=== PATIENT | female | born 1950 | race Caucasian/White ===

== ENCOUNTER 2016-09-18 21:24 | Emergency (ER) | payer MEDICARE, MEDICAID ==
[2016-09-18] MEDS ORDERED: NS 0.9% 1000 ML* 1,000 ML IV ONE (22:34)
[2016-09-18 22:40] LABS: Hematocrit 38 % (35-47); Hemoglobin 12.5 g/dl (12.0-16.0); Mean Corpuscular HGB Conc 33 g/dl (31-36); Mean Corpuscular Hemoglobin 30 pg (27-31); Mean Corpuscular Volume 89 fL (80-97); Mean Platelet Volume 11 um3 (7.4-10.4); Red Blood Count 4.24 10^6/ul (4.0-5.4); Red Cell Distribution Width 14 % (10.5-15); White Blood Count 5.8 10^3/ul (3.5-10.8)
[2016-09-18 22:57] LABS: Albumin 3.9 g/dL (3.2-5.2); BUN/Creatinine Ratio 17.6 (8-20); Calcium 9.1 mg/dL (8.6-10.3); EGFR African American 112.4 (>60); EGFR Non-African American 87.4 (>60); Globulin 3.3 g/dL (2-4); Magnesium 1.7 mg/dL (1.9-2.7); Potassium 3.6 mmol/L (3.5-5.0); Total Bilirubin 0.4 mg/dL (0.2-1.0); Total Protein 7.2 g/dL (6.4-8.9)
[2016-09-18] MEDS ORDERED: Iodixanol* (CONTRAST) 320 MG/ML 100 ML SDV IV ONE (23:02)
[2016-09-18 23:10] LABS: Urine Bacteria Absent (Absent); Urine Bilirubin Negative (Negative); Urine Glucose 2+(150 mg/dL) (Negative); Urine Nitrite Negative (Negative)
[2016-09-18 23:15] LABS: TSH (Thyroid Stimulating Horm) 4.23 mcIU/mL (0.34-5.60)
--- NOTE | 2016-09-19 02:09 | ED ---
Chan Devlin Benjamin, scribed for Leslie Gomes MD on 09/18/16 at 2350 . Dizziness - HPI Summary HPI Summary: 70yo female c/o lightheadedness and dizziness, which the pt describes it as spacing out and having drunk-like feelings. Pt has hx of DM and gets vertigo regularly. Pt also had hx of traumatic left sided head injury last year and reports has been getting dizzy spells ever since. Pt says backward head movement triggers her dizziness. Pt had MRI and CT scan done last January that both came back negative. Todays episode occurred around 8-8:30pm and lasted about 30-45 minutes. Pt also reports some neck pain. Pt also has a little lump in her umbilical area of her abdomen. - History Of Current Complaint Chief Complaint: EDDizziness Stated Complaint: DIZZIENESS Time Seen by Provider: 09/18/16 21:52 Hx Obtained From: Patient Onset/Duration: Resolved Timing: Intermittent Episode Lasting - 30-45 minutes Severity Initially: Mild Severity Currently: None Character: Lightheaded, Dizzy Aggravating Factor(s): Position Change - backward head movement Alleviating Factor(s): Rest - Allergies/Home Medications Allergies/Adverse Reactions: Allergies Allergy/AdvReac Type Severity Reaction Status Date / Time Atenolol Allergy Unknown Verified 01/27/16 14:39 Reaction Details Hydrochlorothiazide Allergy Unknown Verified 01/27/16 14:39 [From Avalide] Reaction Details Irbesartan [From Avalide] Allergy Unknown Verified 01/27/16 14:39 Reaction Details Lisinopril Allergy Unknown Verified 01/27/16 14:39 Reaction Details Penicillins Allergy Unknown Verified 01/27/16 14:39 Reaction Details Ibuprofen AdvReac Mild GI Upset Verified 01/27/16 14:39 PMH/Surg Hx/FS Hx/Imm Hx Endocrine/Hematology History: Reports: Hx Anticoagulant Therapy - PRADAXA, Hx Diabetes Denies: Hx Thyroid Disease Cardiovascular History: Reports: Hx Atrial Fibrillation, Hx Hypercholesterolemia , Hx Hypertension Denies: Hx Pacemaker/ICD Respiratory History: Denies: Hx Asthma, Hx Chronic Obstructive Pulmonary Disease (COPD) GI History: Reports: Hx Gall Bladder Disease - removed Denies: Other GI Disorders History: Denies: Hx Renal Disease, Other Problems/Disorders Musculoskeletal History: Reports: Hx Arthritis - osteo and rheumatoid, Hx Orthopedic Injury - R fibula fx/repair with screws and plate Sensory History: Reports: Hx Contacts or Glasses Opthamlomology History: Reports: Hx Contacts or Glasses Neurological History: Denies: Hx Dementia, Hx Seizures Psychiatric History: Denies: Hx Substance Abuse - Cancer History Hx Chemotherapy: No Hx Radiation Therapy: No - Surgical History Surgery Procedure, Year, and Place: TUBAL Hx Anesthesia Reactions: No - Immunization History Date of Tetanus Vaccine: up to date Date of Influenza Vaccine: 2014 Infectious Disease History: No Infectious Disease History: Denies: Hx Hepatitis, Hx Human Immunodeficiency Virus (HIV), Traveled Outside the US in Last 30 Days - Family History Known Family History: Positive: Cardiac Disease - Social History Occupation: Disabled Lives: Alone Alcohol Use: None Substance Use Type: Reports: None Smoking Status (MU): Never Smoked Tobacco Review of Systems Constitutional: Negative Eyes: Negative ENT: Negative Cardiovascular: Negative Negative: Chest Pain Respiratory: Negative Negative: Shortness Of Breath Positive: Other - lump in abdomen. Negative: Abdominal Pain, Vomiting Genitourinary: Negative Musculoskeletal: Negative Skin: Negative Neurological: Other - dizziness, lightheadedness Psychological: Normal All Other Systems Reviewed And Are Negative: Yes Physical Exam Triage Information Reviewed: Yes Vital Signs On Initial Exam: Initial Vitals Pulse Pulse Ox 79 97 09/18/16 21:48 09/18/16 21:48 Vital Signs Reviewed: Yes Appearance: Positive: Well-Appearing, No Pain Distress, Obese Skin: Positive: Warm, Skin Color Reflects Adequate Perfusion, Dry Head/Face: Positive: Normal Head/Face Inspection Eyes: Positive: EOMI, DESIREE ENT: Positive: Hearing grossly normal, Pharynx normal, TMs normal Neck: Positive: Supple, Nontender Respiratory/Lung Sounds: Positive: Clear to Auscultation, Breath Sounds Present. Negative: Rales, Rhonchi Cardiovascular: Positive: RRR. Negative: Murmur Abdomen Description: Positive: Nontender, Soft. Negative: Distended, Guarding Bowel Sounds: Positive: Present Musculoskeletal: Positive: Strength/ROM Intact Neurological: Positive: Sensory/Motor Intact, Alert, Oriented to Person Place, Time, CN Intact II-III Psychiatric: Positive: Affect/Mood Appropriate - Georgie Coma Scale Coma Scale Total: 15 Diagnostics - Vital Signs Vital Signs Temp Pulse Resp BP Pulse Ox 09/18/16 22:59 77 20 97 09/18/16 22:55 158/78 09/18/16 22:47 23 09/18/16 22:30 19 158/77 09/18/16 22:15 98 F 83 16 145/93 98 09/18/16 22:14 98 F 74 16 145/93 97 09/18/16 22:00 79 18 145/93 97 09/18/16 21:51 79 160/83 96 09/18/16 21:48 79 97 - Laboratory Lab Results: Lab Results 09/18/16 09/18/16 09/18/16 Range/Units 22:34 22:34 22:34 WBC 5.8 (3.5-10.8) 10^3/ul RBC 4.24 (4.0-5.4) 10^6/ul Hgb 12.5 (12.0-16.0) g/dl Hct 38 (35-47) % MCV 89 (80-97) fL MCH 30 (27-31) pg MCHC 33 (31-36) g/dl RDW 14 (10.5-15) % Plt Count 157 (150-450) 10^3/ul MPV 11 H (7.4-10.4) um3 Neut % (Auto) 46.0 (38-83) % Lymph % (Auto) 42.6 (25-47) % [place] % (Auto) 7.5 (1-9) % Eos % (Auto) 2.9 (0-6) % Baso % (Auto) 1.0 (0-2) % Absolute Neuts (auto) 2.6 (1.5-7.7) 10^3/ul Absolute Lymphs (auto) 2.5 (1.0-4.8) 10^3/ul Absolute Monos (auto) 0.4 (0-0.8) 10^3/ul Absolute Eos (auto) 0.2 (0-0.6) 10^3/ul Absolute Basos (auto) 0.1 (0-0.2) 10^3/ul Absolute Nucleated RBC 0 10^3/ul Nucleated RBC % 0.1 Sodium 135 (133-145) mmol/L Potassium 3.6 (3.5-5.0) mmol/L Chloride 103 (101-111) mmol/L Carbon Dioxide 27 (22-32) mmol/L Anion Gap 5 (2-11) mmol/L BUN 12 (6-24) mg/dL Creatinine 0.68 (0.51-0.95) mg/dL Est GFR ( Amer) 112.4 (>60) Est GFR (Non-Af Amer) 87.4 (>60) BUN/Creatinine Ratio 17.6 (8-20) Glucose 237 H (70-100) mg/dL Lactic Acid 1.4 (0.5-2.0) mmol/L Calcium 9.1 (8.6-10.3) mg/dL Magnesium 1.7 L (1.9-2.7) mg/dL Total Bilirubin 0.40 (0.2-1.0) mg/dL AST 11 L (13-39) U/L ALT 11 (7-52) U/L Alkaline Phosphatase 62 (34-104) U/L Troponin I 0.00 (<0.04) ng/mL Total Protein 7.2 (6.4-8.9) g/dL Albumin 3.9 (3.2-5.2) g/dL Globulin 3.3 (2-4) g/dL Albumin/Globulin Ratio 1.2 (1-3) TSH Pending Result Diagrams: 09/18/16 22:34 09/18/16 22:34 Lab Statement: Any lab studies that have been ordered have been reviewed, and results considered in the medical decision making process. - CT CTA head CT Interpretation: No Acute Changes - Anterior and posterior arterial circulations are patent. No stenosis occlusion dissection or aneurysm. Minimal plaque along the ramos of the carotid siphons. CT Interpretation Completed By: Radiologist CTA Neck CT Interpretation: No Acute Changes - Minimal calcified plaque along the bifurcations. CT Interpretation Completed By: Radiologist CT Brain WO CT Interpretation: No Acute Changes CT Interpretation Completed By: Radiologist - EKG 0112. Cardiac Rate: NL - 74bpm EKG Rhythm: Atrial Fibrillation ST Segment: Non-Specific - non-specific t waves Ectopy: None EKG Comparison: No Significant Change - compared to Jan 2016. - Additional Comments Diagnostic Additional Comments: Anterior and posterior arterial circulations are patent. No stenosis occlusion dissection or aneurysm. Minimal plaque along the ramos of the carotid siphons. National Institutes Of Health - NIH Scale Level of Consciousness: Alert/Keenly Responsive Ask Patient the Month and His/Her Age: Both Correct Ask Pt to Open/Close Eyes and Floatlight Powder Mixer/Release Non-Paretic Hand: Both Correctly Best Gaze (Only Horizontal Eye Movement): Normal Visual Field Testing: No Visual Loss Facial Paresis-Pt to Smile & Close Eyes or Grimace Symmetry: Normal/Symmetrical Motor Function - Right Arm: No Drift-Holds 10 Seconds Motor Function - Left Arm: No Drift-Holds 10 Seconds Motor Function - Right Leg: No Drift-Holds 10 Seconds Motor Function - Left Leg: No Drift-Holds 10 Seconds Limb Ataxia-Must be out of Proportion to Weakness Present: Absent Sensory (Use Pinprick to Test Arms/Legs/Trunk/Face): Normal Best Language (Describe Picture, Name Items): No Aphasia Dysarthria (Read Several Words): Normal Extinction and Inattention: No Abnormality Total Score: 0 Dizzy Course/Dx - Course Course Of Treatment: pt who describes long standing light headedness vs. vertigo with symptoms tonight and some neck pain ct brain, cta head and neck neg labs normal - just needs close follow up - Diagnoses Provider Diagnoses: Dizziness Discharge - Discharge Plan Condition: Stable Disposition: HOME Patient Education Materials: Dizziness (ED) Referrals: Derrick Meza MD [Primary Care Provider] - The documentation as recorded by the Chan rojas Benjamin accurately reflects the service I personally performed and the decisions made by me, Leslie Gomes MD.
[2016-09-19 02:16] VITALS: BP 159/74
--- NOTE | 2016-09-19 07:41 | RAD ---
INDICATION: Vertigo. COMPARISON: Comparison is made with a prior CT of the brain from January 27, 2016. TECHNIQUE: Contiguous axial sections of the brain were obtained from the skull base to the vertex without contrast. FINDINGS: The ventricles, cisterns and sulci are within normal limits. No significant focal abnormality or mass effect is seen. There is a Virchow-Zak space present in the inferior posterior left frontal lobe which is unchanged from the prior study. There is no evidence for hemorrhage. The visualized portion of the paranasal sinuses appear clear. IMPRESSION: NO EVIDENCE FOR GROSS ACUTE INFARCT, MASS EFFECT OR HEMORRHAGE.
--- NOTE | 2016-09-19 07:53 | RAD ---
INDICATION: Vertigo. COMPARISON: Comparison is made with a prior CT of the brain of the same date and a prior carotid duplex ultrasound from March 14, 2016. TECHNIQUE: A CT angiogram of the head and neck was performed following intravenous injection of 80 ml of Visipaque 320 nonionic contrast. Contiguous axial sections were obtained from the thoracic inlet through the skull vertex. Images were reconstructed in the coronal and sagittal planes and in a 3-D volume rendered format. The distal cervical internal carotid artery diameter is used as the denominator for stenosis measurement. FINDINGS: RIGHT CAROTID: The common and internal carotid arteries appear patent without evidence for hemodynamically significant stenosis. There is minimal calcific plaque at the carotid bifurcation. LEFT CAROTID: The common and internal carotid arteries appear patent without evidence for hemodynamically significant stenosis. There is mild calcific plaque at the carotid bifurcation. VERTEBRALS: The vertebral arteries appear patent. CTA BRAIN: The internal carotid, anterior and middle cerebral arteries appear patent without evidence for high-grade stenosis or occlusion. There is mild calcific plaque present within the cavernous portion of the internal carotid arteries. The vertebral, basilar and posterior cerebral arteries appear patent without evidence for high-grade stenosis or occlusion. The right posterior cerebral artery arises from the posterior communicating artery consistent with normal variation. No gross focal perfusion abnormalities are seen. No aneurysm or vascular malformation is seen. NECK: No significant enlarged lymph nodes are seen within the neck. The thyroid, parotid and submandibular glands appear to be within normal limits. The lung apices appear clear. The sinuses are clear. IMPRESSION: 1. NO EVIDENCE FOR CAROTID STENOSIS. 2. NO EVIDENCE FOR INTRACRANIAL ANEURYSM OR VASCULAR MALFORMATION. CPT II Codes: 3100F
== END 2016-09-19 02:15 | disposition home or self-care (01) ==
LOC: ED 21:24
DX: R42 Dizziness and giddiness (principal); E11.9 Type 2 diabetes mellitus without complications; I48.91 Unspecified atrial fibrillation; Z79.01 Long term (current) use of anticoagulants; E78.00 Pure hypercholesterolemia, unspecified; I10 Essential (primary) hypertension; E66.9 Obesity, unspecified; Z90.49 Acquired absence of other specified parts of digestive tract
CPT/HCPCS: 36415; 70450; 70496; 70498; 80053; 81003; 81015; 83605; 83735; 84443; 84484; 85025; 87086; 93005; 96360; 99283; Q9967

== ENCOUNTER 2018-01-30 16:29 | Observation (INO) | payer MEDICARE, MEDICAID ==
--- NOTE | 2018-01-30 17:27 | ED ---
HPI Chest Pain - HPI Summary HPI Summary: Pt is a 67 y/o female brought in by EMS who presents to the ED c/o chest pressure. She states a few weeks ago she suddenly couldnt move her left side, but was able to after a few minutes. This has happened several times since then. 3 days ago, she began to have chest pressure, intermittent lower back pain , and pain underneath her left breast rated 3/10 in severity. Pt denies any SOB. Her BP medications were recently increased, and she believes her sx might be due to this. Pt has AFib, HLD, HTN, and DM. She denies having a pacemaker. FHx cardiac disease. Pt is on Eloquis. She has not had any recent stress test. Pt denies any smoking or alcohol use. BP while in room 158/101. - History of Current Complaint Chief Complaint: EDChestPainROMI Time Seen by Provider: 01/30/18 17:17 Hx Obtained From: Patient Onset/Duration: Started Weeks Ago - Several, Still Present Timing: Intermittent Current Severity: Moderate Pain Intensity: 3 Pain Scale Used: 0-10 Numeric Chest Pain Location: Left Lateral Character: Pressure/Squeezing Aggravating Factor(s): Nothing Alleviating Factor(s): Nothing Associated Signs and Symptoms: Positive: Chest Pain. Negative: Shortness of Breath - Additional Pertinent History Primary Care Physician: [id number] - Allergy/Home Medications Allergies/Adverse Reactions: Allergies Allergy/AdvReac Type Severity Reaction Status Date / Time MS Atenolol [Atenolol] Allergy Unknown Verified 10/11/16 11:05 Reaction Details MS Hydrochlorothiazide Allergy Unknown Verified 10/11/16 11:05 [From Avalide] Reaction Details MS Irbesartan [From Avalide] Allergy Unknown Verified 10/11/16 11:05 Reaction Details MS Lisinopril [Lisinopril] Allergy Unknown Verified 10/11/16 11:05 Reaction Details MS Penicillins [Penicillins] Allergy Unknown Verified 10/11/16 11:05 Reaction Details MS Ibuprofen [Ibuprofen] AdvReac Mild GI Upset Verified 10/11/16 11:05 PMH/Surg Hx/FS Hx/Imm Hx Endocrine/Hematology History: Reports: Hx Anticoagulant Therapy - PRADAXA, Hx Diabetes - TYPE 2 Denies: Hx Thyroid Disease Cardiovascular History: Reports: Hx Atrial Fibrillation, Hx Hypercholesterolemia , Hx Hypertension - ON MEDS Denies: Hx Pacemaker/ICD Respiratory History: Denies: Hx Asthma, Hx Chronic Obstructive Pulmonary Disease (COPD) GI History: Reports: Hx Gall Bladder Disease - removed Denies: Other GI Disorders History: Denies: Hx Renal Disease, Other Problems/Disorders Musculoskeletal History: Reports: Hx Arthritis - osteo and rheumatoid, Hx Orthopedic Injury - R fibula fx/repair with screws and plate Sensory History: Reports: Hx Contacts or Glasses Denies: Hx Hearing Aid Opthamlomology History: Reports: Hx Contacts or Glasses Neurological History: Denies: Hx Dementia, Hx Seizures Psychiatric History: Reports: Hx Panic Disorder Denies: Hx Substance Abuse - Cancer History Hx Chemotherapy: No Hx Radiation Therapy: No - Surgical History Surgery Procedure, Year, and Place: TUBAL LIGATION;. LEFT FOREARM;. HERNIA REPAIR;. RIGHT ANKLE;. GALLBLADDER REMOVED;. LEFT EAR FOR REATTACHMENT AFTER INJURY; Hx Anesthesia Reactions: No - Immunization History Date of Tetanus Vaccine: up to date Date of Influenza Vaccine: 2014 Infectious Disease History: No Infectious Disease History: Denies: Hx Hepatitis, Hx Human Immunodeficiency Virus (HIV), Traveled Outside the [place] in Last 30 Days - Family History Known Family History: Positive: Cardiac Disease - Social History Alcohol Use: None Hx Substance Use: No Substance Use Type: Reports: None Hx Tobacco Use: No Smoking Status (MU): Never Smoked Tobacco Review of Systems Positive: Chest Pain, Other - Chest pressure Negative: Shortness Of Breath Positive: Myalgia - low back, left chest Positive: Weakness - left-sided, intermittent All Other Systems Reviewed And Are Negative: Yes Physical Exam - Summary Physical Exam Summary: Appearance: Well appearing, no pain distress Skin: warm, dry, reflects adequate perfusion Head/face: normal Eyes: EOMI, DESIREE ENT: normal Neck: supple, non-tender Respiratory: CTA, breath sounds present Cardiovascular: RRR, pulses symmetrical Abdomen: non-tender, soft Musculoskeletal: normal, strength/ROM intact Neuro: normal, sensory motor intact, A&Ox3 Triage Information Reviewed: Yes Vital Signs On Initial Exam: Initial Vitals Temp Pulse Resp BP Pulse Ox 98.9 F 77 20 171/97 99 01/30/18 17:14 01/30/18 17:14 01/30/18 17:14 01/30/18 17:14 11/28/18 17:14 Vital Signs Reviewed: Yes Diagnostics - Vital Signs Vital Signs Temp Pulse Resp BP Pulse Ox 01/30/18 17:14 98.9 F 77 20 171/97 99 - Laboratory Result Diagrams: 01/30/18 18:20 01/30/18 18:20 Lab Statement: Any lab studies that have been ordered have been reviewed, and results considered in the medical decision making process. - Radiology CXR Radiology Interpretation Completed By: Radiologist Summary of Radiographic Findings: Cardiomegaly and mild pulmonary vascular congestion. ED physician reviewed radiology report. - EKG 17:40 Cardiac Rate: NL - 82 bpm EKG Rhythm: Sinus Rhythm ST Segment: Non-Specific Chest Pain Course/Dx - Course Course Of Treatment: Pt is a 67 y/o female brought in by EMS who presents to the ED c/o chest pressure. She states a few weeks ago she suddenly couldnt move her left side, but was able to after a few minutes. This has happened several times since then. 3 days ago, she began to have chest pressure, intermittent lower back pain, and pain underneath her left breast rated 3/10 in severity. Pt denies any SOB. Her BP medications were recently increased, and she believes her sx might be due to this. Pt has AFib, HLD, HTN, and DM. She denies having a pacemaker. FHx cardiac disease. Pt is on Eloquis. She has not had any recent stress test. Pt denies any smoking or alcohol use. BP while in room 158/101. A physical exam was normal. A CXR revealed Cardiomegaly and mild pulmonary vascular congestion. An EKG revealed non-specific ST changes. Final dx are chest pain and R/O CT. Pt will be admitted to Dr. Wallace. - Chest Pain Differential Diagnosis/HQI/PQRI: Acute CT, ACS, Angina - Diagnoses Provider Diagnoses: Chest pain, Ruled out for myocardial infarction - Provider Notifications Discussed Care Of Patient With: Ame Wallace Time Discussed With Above Provider: 19:10 Instructed by Provider To: Admit As Inpatient Discharge - Sign-Out/Discharge Documenting (check all that apply): Patient Departure - Admit - Discharge Plan Condition: Stable Disposition: ADMITTED TO [facility] Referrals: Derrick Meza MD [Primary Care Provider] - - Billing Disposition and Condition Condition: STABLE Disposition: Admitted to [facility] - Attestation Statements Document Initiated by Clarisseibsamantha: Yes Documenting Scribe: Maren Collins Provider For Whom Clarisseibsamantha is Documenting (Include Credential): Berto Dempsey MD Scribe Attestation: Maren Devlin, scribed for Berto Dempsey MD on 01/30/18 at 1922. Scribe Documentation Reviewed: Yes Provider Attestation: The documentation as recorded by the Maren rojas accurately reflects the service I personally performed and the decisions made by Berto portillo MD Status of Scribe Document: Viewed
[2018-01-30] MEDS ORDERED: Aspirin 81 mg CHEW TAB* 81 MG TAB.CHEW PO ONE (17:30)
[2018-01-30] MEDS ORDERED: Nitroglycerin 2% OINT* 1 GM PAK TOPICAL ONE (17:30)
[2018-01-30 18:35] LABS: ABS Basophils 0 10^3/ul (0-0.2); ABS Eosinophils 0.1 10^3/ul (0-0.6); ABS Lymphocytes 2.5 10^3/ul (1.0-4.8); ABS Monocytes 0.4 10^3/ul (0-0.8); ABS Neutrophils 3.6 10^3/ul (1.5-7.7); ABS Nucleated RBC 0 10^3/ul; Eosinophil % 1.9 %; Hematocrit 41 % (35-47); Hemoglobin 13.6 g/dl (12.0-16.0); Lymphocyte % 37.5 %; Mean Corpuscular HGB Conc 34 g/dl (31-36); Mean Corpuscular Hemoglobin 30 pg (27-31); Mean Corpuscular Volume 88 fL (80-97); Mean Platelet Volume 10.3 fL (7.4-10.4); Nucleated Red Blood Cells % 0; Platelet Count 165 10^3/ul (150-450); Red Blood Count 4.62 10^6/ul (4.00-5.40); Red Cell Distribution Width 14 % (10.5-15); White Blood Count 6.7 10^3/ul (3.5-10.8)
[2018-01-30 18:46] LABS: INR 1.04 (0.77-1.02)
[2018-01-30] MEDS ORDERED: Acetaminophen TAB* 325 MG PO PRN (19:51)
[2018-01-30] MEDS ORDERED: Al Hydrox/Mg Hydrox/Simet LIQ* 30 ML UDC PO PRN (19:51)
[2018-01-30] MEDS ORDERED: Ondansetron INJ* 2 MG/ML VIAL IV PRN (19:51)
[2018-01-30] MEDS ORDERED: Dextrose 50% Syringe 50 ML* 25 GM/50 ML SYRINGE IV PUSH PRN (19:58)
[2018-01-30] MEDS ORDERED: ALPRAZolam TAB* 0.25 MG PO PRN (20:01)
[2018-01-30 20:14] LABS: Urine Appearance Clear; Urine Blood Negative (Negative); Urine Color Straw; Urine Ketones Negative (Negative); Urine Protein Negative (Negative); Urine Red Blood Cell Absent (Absent); Urine Specific Gravity 1.005 (1.010-1.030); Urine Urobilinogen Negative (Negative); Urine White Blood Cell Absent (Absent)
[2018-01-30] MEDS: Magnesium Oxide TAB* 400 MG PO SCH (21:56)
[2018-01-30] MEDS: Apixaban* 2.5 MG TAB PO SCH (21:56)
[2018-01-30] MEDS ORDERED: Atorvastatin* 10 MG TAB PO SCH (22:00)
--- NOTE | 2018-01-31 01:58 | HP ---
CC: Derrick Meza MD * HISTORY AND PHYSICAL: DATE OF ADMISSION: 01/30/18 TIME OF EVALUATION: 1929. PRIMARY CARE PHYSICIAN: Derrick Meza MD CHIEF COMPLAINT: Chest pain. HISTORY OF PRESENT ILLNESS: This is a 67-year-old female with a past medical history of atrial fibrillation, on anticoagulation who presented to the emergency room after having 3 days of chest pain and pressure under her left breast that comes and goes. She states it got significant today when she was on the bus. She was not feeling well. She had the bus kiln puller and had them call 911 to come to the emergency room for further evaluation. She has had no associated shortness of breath, no nausea, no diaphoresis. She has increased burping with indigestion. She is undergoing a lot of stress. She states that she gets very aggravated with her ex- and this makes her chest pain worse. Nothing seems to improve it. She has never taken sublingual nitro that she has had at home. She does not recall her last stress test. She thinks this is related to anxiety and stress and panic attack. Denies any exertional activity. She was recently changed to 240 mg of diltiazem from 180 a month ago. She is set up to get a Holter monitor [address] Cheema. No fevers. No URI symptoms. She states she has chronic lower extremity swelling. Otherwise, review of systems is negative. In the emergency room, the patient had labs, imaging. She was given aspirin 324 mg and referred to the hospitalist service for further evaluation. PAST MEDICAL HISTORY: 1. Atrial fibrillation, on anticoagulation, followed by Dr. Cheema. 2. Nonobstructive coronary artery disease. 3. Diabetes. 4. GERD. MEDICATIONS: 1. Diltiazem ER 240 mg p.o. daily. 2. Glipizide 5 mg p.o. b.i.d. 3. Januvia 50 mg daily. 4. Losartan potassium 25 mg p.o. daily. 5. Nexium 40 mg daily. 6. Crestor 5 mg daily. 7. Aspirin 81 mg daily. 8. Eliquis 2.5 mg p.o. b.i.d. 9. Metformin 500 mg 2 tabs daily. ALLERGIES: ATENOLOL, HYDROCHLOROTHIAZIDE, IRBESARTAN, LISINOPRIL, PENICILLIN, IBUPROFEN. SOCIAL HISTORY: The patient lives alone. She is independent of her ADLs. No history of smoking, alcohol, or illicit drug use. Her healthcare proxy is her daughter, Cassie. Code status, full code. FAMILY HISTORY: Father from complications of prostate cancer when he was 55. Mother from old age at age 90. No history of other coronary artery disease. REVIEW OF SYSTEMS: A 14-point review of systems is as mentioned in the HPI, otherwise negative. PHYSICAL EXAMINATION GENERAL: In no acute distress, resting comfortably. VITALS: Temp 98.9, pulse rate 79, respiratory rate 17, oxygen saturation 96% on room air, blood pressure 147/95. HEENT: Head: Normocephalic. Pupils are equal and reactive, anicteric. Oropharynx: Mucous membranes are moist. NECK: Supple. No lymphadenopathy. RESPIRATORY: Clear to auscultation. No wheezing, rhonchi, or rales. CARDIAC: Irregularly irregular rate and rhythm. Soft systolic murmur, most pronounced at left sternal base. ABDOMEN: Soft, nontender, nondistended. EXTREMITIES: No clubbing, cyanosis, or edema. +2 DPs. NEUROLOGICAL: Alert and oriented x3. No gross focal neurologic deficits. LABORATORY DATA: White count 6.7, hemoglobin 13.6, hematocrit 41, platelets 165. INR is 1.04. Sodium 141, potassium 3.9, chloride 107, bicarb 27, BUN 10, creatinine 0.8, glucose 134. Mag is 1.8. Troponin is 0. BNP 89. RADIOGRAPHIC DATA: EKG shows atrial fibrillation with QTc of 570, no significant ST changes. Chest x-ray, cardiomegaly and mild pulmonary vascular congestion. ASSESSMENT: This is a 67-year-old female with past medical history of atrial fibrillation, on anticoagulation who presented to the emergency room with chest pain. 1. Chest pain. The patient's initial workup is unremarkable. This is atypical chest pain. I suspect this is likely related to anxiety and a panic attack and less likely acute coronary syndrome, but with her risk factors, not unreasonable to admit for overnight observation to rule out for acute coronary syndrome. Plan: We will admit her to telemetry. Continue to monitor her troponin. Check her lipid panel in the morning. We will add on hemoglobin A1c. We will order a nuclear stress test in the morning. We will continue her on her aspirin. We will switch her to atorvastatin. We will do a trial of Xanax as needed if she has any panic attacks here. 2. Atrial fibrillation, on anticoagulation. The patient is rate controlled. We will continue her Eliquis. Also continue her diltiazem. 3. Hypertension. Continue her losartan. 4. Hyperlipidemia. Continue her atorvastatin. 5. Gastroesophageal reflux disease. Continue omeprazole in place of Nexium. 6. FEN. Diabetic diet. N.p.o. after midnight. 7. DVT prophylaxis. The patient scores moderate risk. She is on Eliquis. 8. Code status. Full code. PATIENT TIME: Greater than 45 minutes was spent doing the history and physical , more than half the time was direct patient contact. [id number]/[facility] #: [id number] CHERYL
[2018-01-31] MEDS ORDERED: Insulin LISPRO* 1 UNITS UNIT SUBCUT SCH (07:30)
[2018-01-31] MEDS ORDERED: Omeprazole CAP* 20 MG PO SCH (07:30)
[2018-01-31] MEDS ORDERED: Diltiazem CD CAP* 240 MG PO SCH (09:00)
[2018-01-31] MEDS ORDERED: Aspirin 81 mg CHEW TAB* 81 MG TAB.CHEW PO SCH (09:00)
[2018-01-31] MEDS ORDERED: Losartan TAB* 25 MG PO SCH (09:00)
[2018-01-31] MEDS ORDERED: Regadenoson* 0.4 MG/5 ML SYRINGE ONE (09:37)
[2018-01-31 09:48] VITALS: BP 147/90
[2018-01-31] MEDS: Apixaban* 2.5 MG TAB PO SCH (10:42)
[2018-01-31] MEDS: Magnesium Oxide TAB* 400 MG PO SCH (10:43)
--- NOTE | 2018-02-02 10:21 | DS ---
CC: Derrick Meza MD * DISCHARGE SUMMARY: DATE OF ADMISSION: 01/30/18 DATE OF DISCHARGE: 01/31/18 PRIMARY CARE PROVIDER: Derrick Meza MD MY ATTENDING WHILE IN THE HOSPITAL: Dr. Nona Montana.* (DICTATED BY DANAY MENCHACA) PRIMARY DISCHARGE DIAGNOSIS: Chest pain. SECONDARY DISCHARGE DIAGNOSIS: 1. Atrial fibrillation. 2. Obstructive coronary artery disease. 3. Diabetes. 4. Gastroesophageal reflux disease. STUDIES DONE WHILE IN THE HOSPITAL: Chest x-ray from 01/30/18 read as cardiomegaly and mild pulmonary vascular congestion. Electrocardiogram from 01/30/18 shows atrial fibrillation, rate 82, QTC of 570, likely fleeting 2 U waves or atrial fibrillation beats, normal axis, T-wave flattening in V4, V3 through V6 as well as II and III compared to previous examination. T-wave flattening is new. Atrial fibrillation is not new or significant changes. Repeat EKG from 01/31/18 shows persistent T-wave flattening in lateral leads, resolution in II and III. No significant changes. Nuclear medicine scan from 01/31/18 read as decreased ejection fraction, no definite fixed or perfusion defect. EF read as 48%. Cardiac stress test showed poor exercise tolerance and possible hypertensive response to exercise with nausea. Baseline EKG abnormalities preclude assessment for ischemia. MEDICATIONS AT DISCHARGE: 1. Metformin 500 mg p.o. daily. 2. Aspirin 81 mg p.o. daily. 3. Diltiazem 240 mg p.o. daily. 4. Nitroglycerin 0.5 mg sublingual as needed for chest pain. 5. Losartan 25 mg p.o. daily. 6. Glipizide 5 mg p.o. daily. 7. Januvia 50 mg p.o. daily. 8. Eliquis 2.5 mg p.o. b.i.d. 9. Rosuvastatin 5 mg p.o. at bedtime. 10. Nexium 40 mg p.o. daily. 11. Magnesium oxide 100 mg p.o. daily. HOSPITAL COURSE: This is a brief summary of patient's presentation. For more details, please see history and physical from Dr. Ame Wallace on 01/30/18. In brief, the patient is a 67-year-old female with past medical history significant for the above who presented to the emergency department with 3 days of chest pain under her left breast that was intermittent. She endorsed gastrointestinal symptoms including burping and indigestion and stated that her pain mainly was accompanied by stress. The patient never took nitroglycerin. The patient recently changed to 240 mg of diltiazem and to follow up with Dr. Cheema for her atrial fibrillation. The patient in the emergency department had an EKG as above. She was admitted to the hospital and it was believed she had her atypical chest pain with a low risk for acute coronary syndrome. The patient did not have any more chest pain while in the hospital. The patient had a repeat electrocardiogram the day after admission, which was read as above. The patient initially had a prolonged QT interval and low magnesium. The patient was started on oral magnesium supplementation and her QT interval improved. The patient's lipid profile showed an LDL of 55 and HDL of 45. The patient's blood glucose control while in the hospital was good, but her hemoglobin A1c was 8.4%. The patient underwent a stress test which was read as above. Due to patient's atrial fibrillation, the patient's decreased EF in the setting of no ischemia is likely artifactual. The patient was very insistent upon her discharge in the morning on 02/01/18 and threatened to leave against medical advice if she was not discharged. It was discussed with the patient that she required a routine followup with her outpatient gusset ripper results of her stress test and to possibly have an echocardiogram to assess for decreased ejection fraction. The patient is understanding. It was also discussed that the patient should try to decrease her stress level and she stated understanding of this although she did not think this would be feasible. The patient was stable enough for discharge on 02/01/18. PHYSICAL EXAMINATION AT TIME OF DISCHARGE: General: The patient is an 67-year- old obese female who appears stated age, sitting comfortably in bed, in no acute distress. HEENT: Head: Normocephalic, atraumatic. Sclerae anicteric. No conjunctival injection. Nasal mucosa moist. Oral mucosa moist. No pharyngeal erythema, discharge, or exudates. Vital signs at the time of discharge: Temperature 97.9, pulse rate 58, respiratory rate 16, oxygen saturation 98% on room air, blood pressure 147/90. Neck: Supple, nontender. No lymphadenopathy. No carotid bruit auscultated. No JVD Cardiac: Regular rate and rhythm. No clicks, murmurs, gallops, rubs. Pulses 2+ bilaterally in dorsalis pedis, posterior tibialis, and radial areas. No bilateral lower extremity edema noted. Respiratory: Clear to auscultation bilaterally. No wheezes, rales, or rhonchi. Good air exchange bilaterally. Abdomen: Soft, nontender, nondistended. Bowels sounds present, normoactive in all 4 quadrants. No hepatosplenomegaly, no abdominal bruits auscultated. No hepatojugular reflux. Genitourinary: No suprapubic tenderness or CVA tenderness. Skin: Clean, dry and intact. No rash. Neuro: Cranial nerves II through XII intact. No focal deficits. Alert and oriented x3. Psychiatric: Pleasant and cooperative. DISCHARGE PLAN: The patient will be discharged to home. The patient should follow up with her outpatient gusset ripper Dr. Cheema to discuss the results of her stress test and possibly have a followup echocardiogram. As above, the patient's decreased EF is likely artifactual. However, the patient's stress test was abnormal. The patient's decreased exercise tolerance is likely due to her obesity and it was discussed with the patient she should lose weight for her health and she stated understanding. The patient feels that she is not tolerating 240 mg of diltiazem daily and she was instructed to discuss decreasing her dose with her outpatient gusset ripper Dr. Cheema. The patient has an excellent lipid profile, will continue on rosuvastatin. The patient will be continued on aspirin daily as well as her outpatient antihypertensive medications. The patient should discuss with her primary care provider escalating therapy for her diabetes as she is not at goal in her A1c. The patient should have heart healthy, consistent carbohydrate diet and engage in activities as tolerated to help with her weight loss. TIME SPENT: Approximately 60 minutes was spent on the discharge, 30 of which was spent [id number] with the patient and obtaining history and physical and discussing treatment plan. DANAY MENCHACA [id number]/[facility] #: [id number] CHERYL
== END 2018-01-31 13:39 | disposition home or self-care (01) ==
LOC: ED 16:29 → MEDTELE 19:51
PROVIDERS: ADMIT Pediatrics; ATTEND Pediatrics
DX: R07.9 Chest pain, unspecified (principal); I48.91 Unspecified atrial fibrillation; J44.9 Chronic obstructive pulmonary disease, unspecified; E11.9 Type 2 diabetes mellitus without complications; K21.9 Gastro-esophageal reflux disease without esophagitis; Z88.0 Allergy status to penicillin; Z79.01 Long term (current) use of anticoagulants; I10 Essential (primary) hypertension; M54.5 Low back pain; Z79.82 Long term (current) use of aspirin
CPT/HCPCS: 36415; 71045; 78452; 80053; 80061; 81003; 81015; 83036; 83605; 83735; 83880; 84484; 85025; 85610; 85730; 87086; 93005; 93017; 96374; 96375; 99284; A9270-GY; A9502; G0378; J2785

== ENCOUNTER 2018-03-11 15:44 | Observation (INO) | payer MEDICARE, MEDICAID ==
--- NOTE | 2018-03-11 16:05 | ED ---
Neurological HPI - HPI Summary HPI Summary: A 67 y/o female who was referred from her PCP presents to [facility] with a chief complaint of a possible TIA. She c/o left sided hip pain, back pain, left arm pain, left leg pain and weakness stating that she needs to pull herself up the steps. She has been having these symptoms since 03/08/18. She rates her pain as 3/10. Elevating her foot alleviates her pain. Pulling her leg up aggravates her pain. She called her PCP who instructed her to come to the ED for a Brain CT. She has a Hx of DM and states that she has had a loose bladder. She denies using a walker or having prior issues with her left leg. She also reports that her feet have been cold and numb. She denies Fever, Chills, Erythema (eyes), Sore throat, Chest pain, Shortness of Breath, Cough, Abdominal pain, Vomiting, Nausea, Dysuria, Hematuria, Edema, Rash and Dizziness. She claims that she was on Magnesia 400mg 2 weeks [employer] and claims that it gave her nausea, but has stopped and her nausea has since resolved. - History of Current Complaint Chief Complaint: EDNeurologicalDeficit Stated Complaint: POSSIBLE TIA Time Seen by Provider: 03/11/18 15:56 Hx Obtained From: Patient Onset/Duration: Sudden Onset, Started days ago, Still Present Timing: Constant Onset Severity: Mild Current Severity: Mild Pain Intensity: 3 Pain Scale Used: 0-10 Numeric Character: Weak, Numbness/Tingling, Other: - Cold feet Aggravating: Exertion Alleviating: Other - Elevating feet Associated Signs and Symptoms: Positive: Numbness. Negative: Dizziness, Nausea/ Vomiting, Chest Pain - Additional Pertinent History Primary Care Physician: [id number] - Allergy/Home Medications Allergies/Adverse Reactions: Allergies Allergy/AdvReac Type Severity Reaction Status Date / Time latex Allergy Unknown Verified 03/11/18 15:51 Reaction Details lisinopril Allergy Unknown Verified 03/11/18 15:51 Reaction Details Penicillins Allergy Unknown Verified 03/11/18 15:51 Reaction Details warfarin Allergy Unknown Verified 03/11/18 15:51 Reaction Details atenolol AdvReac Unknown Verified 03/11/18 15:51 Reaction Details ciprofloxacin AdvReac Unknown Verified 03/11/18 15:51 Reaction Details hydrochlorothiazide AdvReac Unknown Verified 03/11/18 15:51 Reaction Details ibuprofen AdvReac GI Upset Verified 03/11/18 15:51 irbesartan AdvReac Unknown Verified 03/11/18 15:51 Reaction Details clorox Allergy Unknown Uncoded 03/11/18 15:51 Reaction Details strawerry Allergy Unknown Uncoded 03/11/18 15:51 Reaction Details Home Medications: Home Medications Aspirin EC TAB* [Ecotrin EC Low Dose 81 MG*] 81 mg PO DAILY 03/11/18 [History Confirmed 03/11/18] Fluticasone NASAL SPRAY 50MCG* [Flonase NASAL SPRAY 50MCG*] 2 spray BOTH NARES DAILY 03/11/18 [History Confirmed 03/11/18] Losartan TAB* [Cozaar TAB*] 25 mg PO DAILY 03/11/18 [History Confirmed 03/11/18] Magnesium Oxide TAB* [MagOx 400 TAB*] 800 mg PO DAILY 03/11/18 [History Confirmed 03/11/18] Nitroglycerin TAB 0.4 MG* 0.4 mg SL Q5M PRN 03/11/18 [History Confirmed 03/11/18 ] Rosuvastatin (NF) [Crestor (NF)] 5 mg PO DAILY 03/11/18 [History Confirmed 03/11] Sitagliptin (NF) [Januvia (NF)] 50 mg PO DAILY 03/11/18 [History Confirmed 03/11] dilTIAZem HCl [Diltiazem 24Hr ER] 240 mg PO DAILY 03/11/18 [History Confirmed ] glipiZIDE [Glipizide ER] 10 mg PO DAILY 03/11/18 [History Confirmed 03/11/18] metFORMIN* [Glucophage 500 MG TAB *] 500 mg PO BID 03/11/18 [History Confirmed 03/11/18] PMH/Surg Hx/FS Hx/Imm Hx Endocrine/Hematology History: Reports: Hx Anticoagulant Therapy - eliquis, Hx Diabetes - TYPE 2 Denies: Hx Thyroid Disease Cardiovascular History: Reports: Hx Angina, Hx Atrial Fibrillation, Hx Coronary Artery Disease, Hx Hypercholesterolemia, Hx Hypertension - ON MEDS Denies: Hx Myocardial Infarction, Hx Pacemaker/ICD, Hx Valvular Heart Disease Respiratory History: Denies: Hx Asthma, Hx Chronic Obstructive Pulmonary Disease (COPD) GI History: Reports: Hx Gall Bladder Disease - removed Denies: Other GI Disorders History: Denies: Hx Renal Disease, Other Problems/Disorders Musculoskeletal History: Reports: Hx Arthritis - osteo and rheumatoid, Hx Orthopedic Injury - R fibula fx/repair with screws and plate Sensory History: Reports: Hx Contacts or Glasses Denies: Hx Hearing Aid Opthamlomology History: Reports: Hx Contacts or Glasses Neurological History: Denies: Hx Dementia, Hx Seizures Psychiatric History: Reports: Hx Panic Disorder Denies: Hx Substance Abuse - Cancer History Hx Chemotherapy: No Hx Radiation Therapy: No - Surgical History Surgery Procedure, Year, and Place: TUBAL LIGATION;. LEFT FOREARM;. HERNIA REPAIR;. RIGHT ANKLE;. GALLBLADDER REMOVED;. LEFT EAR FOR REATTACHMENT AFTER INJURY; Hx Anesthesia Reactions: No - Immunization History Date of Tetanus Vaccine: up to date Date of Influenza Vaccine: 2014 Infectious Disease History: No Infectious Disease History: Denies: Hx Hepatitis, Hx Human Immunodeficiency Virus (HIV), Traveled Outside the [place] in Last 30 Days - Family History Known Family History: Positive: Cardiac Disease - Social History Alcohol Use: None Hx Substance Use: No Substance Use Type: Reports: None Hx Tobacco Use: No Smoking Status (MU): Never Smoked Tobacco Review of Systems Negative: Fever, Chills Negative: Erythema Negative: Sore Throat Negative: Chest Pain Negative: Shortness Of Breath, Cough Negative: Abdominal Pain, Vomiting, Nausea Negative: dysuria, hematuria Positive: Arthralgia - right hip pain, Myalgia - left leg pain, left arm pain, back pain Neurological: Negative - dizziness Positive: Weakness - legs, Numbness All Other Systems Reviewed And Are Negative: Yes Physical Exam - Summary Physical Exam Summary: Constitutional: Well-developed, Well-nourished, Alert. (-) Distressed Skin: Warm, Dry HENT: Normocephalic; Atraumatic Eyes: Conjunctiva normal Neck: Musculoskeletal ROM normal neck. (-) JVD, (-) Stridor, (-) Tracheal deviation Cardio: Rhythm regular, rate normal, Heart sounds normal; Intact distal pulses; The pedal pulses are 2+ and symmetric. Radial pulses are 2+ and symmetric. (-) Murmur Pulmonary/Chest wall: Effort normal. (-) Respiratory distress, (-) Wheezes, (-) Rales Abd: Soft, (-) epigastric tenderness, (-) Distension, (-) Guarding, (-) Rebound Musculoskeletal: (-) Edema, left hip flexor weakness with mild discomfort, Distal inflexions intact. Plantar and dorsal inflexions are symmetric bilaterally. Unable to elicit deep tendon reflexes. Lymph: (-) Cervical adenopathy Neuro: Alert, Oriented x3 Psych: Mood and affect Normal Triage Information Reviewed: Yes Vital Signs On Initial Exam: Initial Vitals Temp Pulse Resp BP Pulse Ox 97.9 F 88 16 158/83 100 03/11/18 15:47 03/11/18 15:47 03/11/18 15:47 03/11/18 15:47 03/11/18 15:47 Vital Signs Reviewed: Yes - Georgie Coma Scale Best Eye Response: 4 - Spontaneous Best Motor Response: 6 - Obeys Commands Best Verbal Response: 5 - Oriented Coma Scale Total: 15 Diagnostics - Vital Signs Vital Signs Temp Pulse Resp BP Pulse Ox 03/11/18 15:47 97.9 F 88 16 158/83 100 - Laboratory Result Diagrams: 03/11/18 16:16 03/11/18 16:16 Lab Statement: Any lab studies that have been ordered have been reviewed, and results considered in the medical decision making process. - Radiology Hip/pelvis x-ray Radiology Interpretation Completed By: Radiologist Summary of Radiographic Findings: No radiographic evidence for LEFT hip fracture. Mild osteoarthritis. ED provider has reviewed this imaging report. - CT Brain CT Interpretation Completed By: Radiologist Summary of CT Findings: Negative unenhanced head CT. ED provider has reviewed this imaging report. Re-Evaluation - Re-Evaluation First Eval Re-Evaluation Time: 19:25 Change: Unchanged Comment: Discussed plan for patient. Course/Dx - Course Course Of Treatment: A 67 y/o female who was referred from her PCP presents to [facility] with a chief complaint of a possible TIA. She c/o left sided hip pain, back pain, left arm pain, left leg pain and weakness stating that she needs to pull herself up the steps. Her physical exam revealed left hip flexor weakness with mild discomfort, Distal inflexions intact. Plantar and dorsal inflexions are symmetric bilaterally. Unable to elicit deep tendon reflexes. Lab results obtained and WNL. Hip/pelvis x-ray impression: No radiographic evidence for LEFT hip fracture. Mild osteoarthritis. Brain CT impression: Negative unenhanced head CT. Case discussed with Dr. Tejada, hospitalist, who accepted the patient for admission. - Diagnoses Provider Diagnoses: Left leg weakness - Physician Notifications Discussed Care Of Patient With: Yoseph Tejada Time Discussed With Above Provider: 19:20 Instructed by Provider To: Admit As Inpatient Discharge - Sign-Out/Discharge Documenting (check all that apply): Patient Departure - admit - Discharge Plan Condition: Improved Disposition: ADMITTED TO [facility] - Billing Disposition and Condition Condition: IMPROVED Disposition: Admitted to [facility] - Attestation Statements Document Initiated by Ilanae: Yes Documenting Scribe: Isaías Salas Provider For Whom Arleth is Documenting (Include Credential): Neto Josue MD Scribe Attestation: I, Isaías Salas, scribed for Neto Josue MD on 03/14/18 at 1811. Scribe Documentation Reviewed: Yes Provider Attestation: The documentation as recorded by the Isaías rojas accurately reflects the service I personally performed and the decisions made by me, Neto Josue MD Status of Scribe Document: Viewed
[2018-03-11 17:21] LABS: Hematocrit 40 % (35-47); Hemoglobin 13.3 g/dl (12.0-16.0); Mean Corpuscular HGB Conc 33 g/dl (31-36); Mean Corpuscular Hemoglobin 30 pg (27-31); Mean Corpuscular Volume 89 fL (80-97); Mean Platelet Volume 10.5 fL (7.4-10.4); Platelet Count 179 10^3/ul (150-450); Red Blood Count 4.51 10^6/ul (4.00-5.40); Red Cell Distribution Width 14 % (10.5-15); White Blood Count 5.5 10^3/ul (3.5-10.8)
[2018-03-11 17:47] LABS: Albumin/Globulin Ratio 1.5 (1-3); BUN/Creatinine Ratio 15.7 (8-20); C Reactive Protein 1.77 mg/L (<8.01); Calcium 9.2 mg/dL (8.6-10.3); Globulin 2.7 g/dL (2-4); Magnesium 1.7 mg/dL (1.9-2.7); Potassium 3.7 mmol/L (3.5-5.0); Total Bilirubin 0.5 mg/dL (0.2-1.0); Total Protein 6.7 g/dL (6.4-8.9)
[2018-03-11] MEDS ORDERED: Diazepam TAB(*) 5 MG PO ONE (17:55)
[2018-03-11] MEDS ORDERED: methylPREDNISolone 125 MG* 2 ML VIAL IV ONE (19:15)
[2018-03-11] MEDS ORDERED: Ketorolac INJ* 30 MG/ML 1 ML VIAL IV PUSH ONE (19:15)
[2018-03-11] MEDS ORDERED: traMADol TAB* 50 MG PO ONE (19:15)
[2018-03-11 19:52] LABS: Myoglobin 42.5 ng/mL (14.3-65.8)
[2018-03-11] MEDS ORDERED: Nitroglycerin TAB 0.4 MG* 0.4 MG TAB SL PRN (20:01)
[2018-03-11 20:02] LABS: TSH (Thyroid Stimulating Horm) 1.51 mcIU/mL (0.34-5.60)
[2018-03-11 20:04] LABS: Free T4 0.83 ng/dL (0.61-1.12)
[2018-03-11 20:18] LABS: Erythrocyte Sed Rate 14 mm/Hr (0-40)
--- NOTE | 2018-03-11 20:53 | ADMNOTE ---
Subjective Date of Service: 03/11/18 Interval History: HISTORY & PHYSICAL CC: left leg weakness HPI: Patient is 67 year old woman with T2 diabetes, who has had intermitted left leg weakness for 3 days. There is associated pain, that she rates as severe, focused on her LT greater trochanter and thigh. She does not particularly have back pain. Pain is deep, aching, not electric, shooting, tingling. She can walk, but she needs to climb stairs by using her RT leg and pulling herself up with her arms. Weakness has progressed overall in last 3 days. There was no initial injury. No similar issue in past. She saw Dr. Martin in her PCP office today and was sent to ER for evaluation. Review of outpatient chart shows cardiac history with unexplained chest pain in past, stress test negative in 12/18. Had echo in 11/12 that showed EF 50-55% and more recent echo in 2017 that showed EF 48%. PCP; Dr. Meza Family History: Findings - Mother of stroke, mother and brother had diabetes, father of prostate cancer, bone mets, age 58 Social History: Findings - Retired, , 4 children, quit smoking in 1970s , no alcohol or drug use Past Medical History: Findings - Chronic AF, T2DM, HLD, HTN, allergic rhinitis, migraines, RA diagnosed age 18, in remission, PSH: RT fibula ORIF, cholecystectomy, Tonsillectomy Review of Systems - Measurements Intake and Output: Intake and Output Last 24 Hours 03/09/18 03/10/18 03/11/18 03/12/18 06:59 06:59 06:59 06:59 Weight 117.934 kg - Review of Systems Constitutional Symptoms: Positive: Fatigue, Other - chills Negative: Night Sweats Dermatology: Positive: Normal HEENT: Positive: Normal Eyes: Positive: Normal Thyroid: Positive: Normal Pulmonary: Positive: Normal Cardiology: Positive: Normal Gastroenterology: Positive: Nausea Negative: Vomiting, Anorexia, Diarrhea Genital - Urinary: Positive: Nocturia, Other - urgency Musculoskeletal: Positive: Arthritis Negative: Low Back Pain, Sciatica Endocrinology: Positive: Diabetes Mellitus Hematologic/Lymphatic: Positive: Use of Anticoagulant Neurology: Positive: Headache, Change in Walking, Unexplained Weakness Negative: Hx of Stroke\TIA, Hx of Seizures Psychiatry: Positive: Normal Objective Active Medications: Apixaban (Eliquis*) 2.5 mg PO BID [facility] Aspirin (Aspirin Ec Tab*) 81 mg PO DAILY [facility] Diltiazem HCl (Cardizem Cd Cap*) 240 mg PO DAILY [facility] Esomeprazole Magnesium (Nexium(Nf)) 40 mg PO DAILY [facility]; Protocol Glipizide (Glucotrol Xl*) 10 mg PO DAILY [facility] Losartan Potassium (Cozaar Tab*) 25 mg PO DAILY [facility] Magnesium Oxide (Magox 400 Tab*) 800 mg PO DAILY [facility] Metformin HCl (Glucophage*) 500 mg PO BID [facility] Nitroglycerin (Nitroglycerin Tab 0.4 Mg*) 0.4 mg SL Q5M PRN PRN Reason: PAIN - CHEST Rosuvastatin Calcium (Crestor (Nf)) 5 mg PO DAILY [facility]; Protocol Sitagliptin Phosphate (Januvia (Nf)) 50 mg PO DAILY [facility] Vital Signs - 8 hr 03/11/18 03/11/18 03/11/18 15:47 16:10 16:11 Temperature 36.6 C Pulse Rate 88 78 77 Respiratory 16 14 18 Rate Blood Pressure 158/83 149/78 (mmHg) O2 Sat by Pulse 100 98 99 Oximetry 03/11/18 03/11/18 03/11/18 19:13 20:00 20:12 Temperature Pulse Rate 73 86 66 Respiratory 13 16 16 Rate Blood Pressure 146/83 149/90 (mmHg) O2 Sat by Pulse 98 94 97 Oximetry 03/11/18 20:37 Temperature 36.6 C Pulse Rate 67 Respiratory 16 Rate Blood Pressure 149/90 (mmHg) O2 Sat by Pulse 97 Oximetry Appearance: alert, no distress Eyes: No Scleral Icterus Ears/Nose/Mouth/Throat: NL Teeth, Lips, Gums, Clear Oropharnyx Neck: NL Appearance and Movements; NL JVP, Trachea Midline Respiratory: Symmetrical Chest Expansion and Respiratory Effort, Clear to Auscultation Cardiovascular: NL Sounds; No Murmurs; No JVD, RRR Abdominal: NL Sounds; No Tenderness; No Distention, No Hepatosplenomegaly Lymphatic: No Cervical Adenopathy Extremities: No Edema, - - FROM LT hip w/o pain, tender LT greater trochanter Skin: No Rash or Ulcers Neurological: Alert and Oriented x 3, NL Sensation, - - motor 4-/5 LLE, proximally, 4+/5 distally, DTR 2+/symmetric, SLR negative Lines/Tubes/Other Access: Clean, Dry and Intact Peripheral IV Nutrition: Taking PO's Result Diagrams: 03/11/18 16:16 03/11/18 16:16 Additional Lab and Data: Laboratory Tests 03/11/18 03/11/18 16:16 16:16 ESR 14 Magnesium 1.7 L C-Reactive Protein 1.77 TSH 1.51 Free T4 0.83 Diagnostic Imaging: Head CT negative MRI brain, LS spine, LT hip pending Assess/Plan/Problems-Billing Assessment: 67 year old presenting with left leg weakness and pain of unknown etiology - Patient Problems (1) Left leg weakness Current Visit: Yes Status: Acute Priority: High Code(s): R29.898 - OTH SYMPTOMS AND SIGNS INVOLVING THE MUSCULOSKELETAL SYSTEM SNOMED Code(s): 255644992 Comment: Differential includes sciatic nerve impingment, piriformis syndrome , trochanteric bursitis, stroke. Will have MRI of LT hip, LS spine, and brain tonight. Will need physical therapy assessment tomorrow. (2) Type 2 diabetes mellitus Current Visit: Yes Status: Acute Priority: Medium Comment: Will continue current medications Controlled carb diet Add sliding scale insulin if needed Diabetes can cause mononeuritis multiplex which would explain pain and weakness in leg, may need nerve conduction testing. (3) Atrial fibrillation Current Visit: Yes Status: Acute Priority: Medium Code(s): I48.91 - UNSPECIFIED ATRIAL FIBRILLATION SNOMED Code(s): 13940789 Comment: Rate control attained with calcium channel bienvenido Anticoagulation with Eliquis (4) DVT prophylaxis Current Visit: Yes Status: Acute Priority: Low Code(s): BCK1256 - SNOMED Code(s): 073766553 Comment: on Eliquis Status and Disposition: Requires admission for neurologic workup.
[2018-03-11] MEDS ORDERED: Gadoteridol* (CONTRAST) 279.3 MG/ML 10 ML IV ONE (21:51)
[2018-03-11] MEDS ORDERED: Dextrose 50% Syringe 50 ML* 25 GM/50 ML SYRINGE IV PUSH PRN (22:50)
[2018-03-11] MEDS: Apixaban* 5 MG TAB PO SCH (22:58)
[2018-03-11] MEDS: metFORMIN* 500 MG TAB PO SCH (22:58)
[2018-03-11] MEDS: Insulin LISPRO* 1 UNITS UNIT SUBCUT SCH (23:18)
[2018-03-12 08:31] VITALS: BP 132/78
[2018-03-12] MEDS: Insulin LISPRO* 1 UNITS UNIT SUBCUT SCH ×2 (08:40→11:59)
[2018-03-12] MEDS: Apixaban* 5 MG TAB PO SCH (08:41)
[2018-03-12] MEDS: metFORMIN* 500 MG TAB PO SCH (08:42)
[2018-03-12] MEDS ORDERED: glipiZIDE TAB.XL* 5 MG PO SCH (09:00)
[2018-03-12] MEDS ORDERED: Diltiazem CD CAP* 240 MG PO SCH (09:00)
[2018-03-12] MEDS ORDERED: Pantoprazole TAB * 40 MG TAB PO SCH (09:00)
[2018-03-12] MEDS ORDERED: Magnesium Oxide TAB* 400 MG PO SCH (09:00)
[2018-03-12] MEDS ORDERED: Aspirin EC TAB* 81 MG TAB.EC PO SCH (09:00)
[2018-03-12] MEDS ORDERED: CMCS:Sitagliptin (NF) 50 MG TAB PO SCH (09:00)
[2018-03-12] MEDS ORDERED: Atorvastatin* 10 MG TAB PO SCH (09:00)
[2018-03-12] MEDS ORDERED: Losartan TAB* 25 MG PO SCH (09:00)
[2018-03-12] MEDS ORDERED: Acetaminophen TAB* 325 MG PO PRN (11:02)
--- NOTE | 2018-03-12 20:26 | DS ---
CC: Dr. Derrick Meza * DISCHARGE SUMMARY: DATE OF ADMISSION: 03/11/18 DATE OF DISCHARGE: 03/12/18 PRIMARY CARE PROVIDER: Dr. Derrick Meza. ATTENDING PHYSICIAN: Dr. Nona Montana * (dictated by Maritza Frank NP). PRIMARY DIAGNOSIS: Left hip pain secondary to left hip osteoarthritis and muscle strain. SECONDARY DIAGNOSES: 1. Diabetes mellitus type 2. 2. Atrial fibrillation. 3. Hypertension. STUDIES WHILE IN THE HOSPITAL: 1. Brain CT on 03/11/18 reads as negative unenhanced head CT. 2. Left hip/pelvis x-ray on 03/11/18 reads as no radiographic evidence for left hip fracture. Mild osteoarthritis. 3. Left hip MRI on 03/11/18 reads as no fracture or suspicious marrow signal. Moderate strain, small partial distal insertion of the left gluteus medius muscle on the greater trochanter. Additional moderate strain of the distal insertion of the gluteus louie without retracted tear. Rwuf-no-wirqezru degenerative changes are noted. 4. Lumbar spine MRI on 03/11/18 reads as multilevel degenerative changes as detailed in the body of the report without a dominant disk herniation or critical stenosis. Central canal narrowing is moderate at L2-L3. Moderate-to- severe narrowing left neural foramen L4-L5. 5. Brain MRI on 03/11/18 reads as no intracranial bleed, no suspicious mass or mass effect. Ventricles appear unremarkable. Limited chronic small vessel sphenoid type change. No abnormally restricted diffusion to suggest acute ischemic event. HISTORY OF PRESENT ILLNESS AND HOSPITAL COURSE: Ms. Cardoso is a 67-year-old female with past medical history of diabetes, atrial fibrillation, hypertension , hyperlipidemia, and rheumatoid arthritis, who presented to the emergency room on 03/11/18 with complaints of left leg weakness. Please see the history and physical by Dr. Tejada for a complete summary of the events leading up to this hospitalization. In short, the patient reports 3 to 4 days of left leg pain. She denies any back pain or right hip pain. She noted that she occasionally has pain radiating towards her buttocks, but denied any shooting pain or tingling. She had no known injury. She initially denied having any similar issues in the past, though I will note that the patient is a poor historian and upon further conversation, she does note that she has had left hip pain in the past though it has become worse in the last 3 to 4 days. She was admitted by the hospitalist service to rule out any neurological deficits or concerns. The patient had an uneventful night. She reports that she had no pain overnight and has no pain this morning. She did report to me that she typically does not have any pain in the morning and the pain comes on towards the end of the day and when she is walking more. The pain is located primarily along the left lower back. She denies any shooting pain, numbness, or tingling. She is anxious to return home and was not particularly interested in having a physical therapy evaluation; however, she was seen by Physical Therapy this morning, who noted that she was able to ambulate independently and was able to climb 7 stairs independently with the use of one rail. Physical Therapy recommended following up with her primary care provider and/or orthopedist to further address her pain, safety, and functional mobility. On exam, she has no focal neurological deficits and is observed ambulating with a steady gait. Ms. Cardoso is stable for discharge today. Vital signs are as follows: Temp 97.9 , heart rate 90, respiratory rate 16, oxygen saturation 98% on room air, blood pressure 138/78. DISCHARGE MEDICATIONS: New medications: 1. Tramadol 25 mg p.o. q.6 hours p.r.n. pain, #10. 2. Acetaminophen 975 mg p.o. q.6 hours p.r.n. pain. Continued medications: 1. Apixaban 2.5 mg p.o. b.i.d. 2. Aspirin 81 mg p.o. daily. 3. Diltiazem ER 240 mg p.o. daily. 4. Esomeprazole 40 mg p.o. daily. 5. Fluticasone nasal spray 2 sprays both nares daily. 6. Glipizide 10 mg p.o. daily. 7. Losartan 25 mg p.o. daily. 8. Magnesium oxide 800 mg p.o. daily. 9. Metformin 500 mg p.o. b.i.d. 10. Nitroglycerin 0.4 mg sublingual q.5 minutes p.r.n. chest pain. 11. Rosuvastatin 5 mg p.o. daily. 12. Sitagliptin 50 mg p.o. daily. DISCHARGE PLAN: Ms. Cardoso will be discharged home. Activity will be as tolerated. Diet will be diabetic. She has been advised to use Tylenol for her pain, though is very hesitant to use Tylenol as she reports that it gives her GI upset. She did have good pain relief with the use of tramadol here in the hospital, so I have prescribed her a small supply of tramadol. She can continue her other usual medications. She will need to follow up with her primary care provider in 4 to 7 days. I have advised her that she may also end up needing to see an orthopedist if this hip pain continues as she was noted to have some moderate osteoarthritis on imaging. She was resistant to wanting to follow up with an orthopedist, but reported that she will follow up with her primary care provider. She has been advised to return to the emergency room or nearest hospital for any worsening of symptoms, shortness of breath, lightheadedness, dizziness, chest discomfort, high fevers, chills, night sweats , loss of consciousness, or any other worrisome signs or symptoms. This is a summarized report of a complex medical history and hospital stay. For further details, please see the entire medical record. TIME SPENT: Approximately 35 minutes was spent on this discharge. MARITZA FRANK NP [id number]/[facility] #: [id number] CHERYL
[2018-03-12] MEDS ORDERED: Nystatin TOP POWDER* 15 GM BTL TOPICAL SCH (23:30)
[2018-03-14 13:59] LABS: Albumin 3.3 g/dL (3.4-4.7); Albumin/Globulin Ratio 0.86; Gamma Globulin 1.3 g/dL (0.6-1.6); Total Protein(PEP) 7.1 g/dL (6.3 - 7.9)
== END 2018-03-12 12:15 | disposition home or self-care (01) ==
LOC: ED 15:44 → INTOOBSV 19:58 → MED 19:58
PROVIDERS: ADMIT Internal Medicine; ATTEND Internal Medicine
DX: M19.90 Unspecified osteoarthritis, unspecified site (principal); E11.9 Type 2 diabetes mellitus without complications; I48.91 Unspecified atrial fibrillation; I10 Essential (primary) hypertension; M25.552 Pain in left hip; Z79.82 Long term (current) use of aspirin; Z88.0 Allergy status to penicillin; Z79.01 Long term (current) use of anticoagulants
CPT/HCPCS: 36415; 70450; 70553; 72148; 80053; 82550; 83735; 83874; 84155; 84165; 84439; 84443; 85027; 85652; 86140; 99284; A9270-GY; A9579; G0378; G8978-GP-CI; G8979-GP-CI; G8980-GP-CI; J1885; J2930

== ENCOUNTER 2018-07-28 10:30 | Emergency (ER) | payer MEDICARE, MEDICAID ==
--- NOTE | 2018-07-28 11:18 | ED ---
HPI Chest Pain - HPI Summary HPI Summary: This patient is a 67 year old F brought to ED via EMS with a chief complaint of chest pain since 0900 this morning. The patient states she had a sharp pain in left arm following by numbness spreading up the left arm lasting a few seconds while eating breakfast. She had water, food, and three cups of water. She then experienced chest tightness and bilateral hand swelling. The swelling has since improved and she no longer feels tightness. The patient rates the pain 0/10 in severity. Symptoms aggravated by nothing. Symptoms alleviated by nothing. Patient reports mild lightheadedness. Patient denies N/V. Patient previously had a cardiac cath and follow-up with a criminal justice professor who reported everything was fine, per patient. Patient does not usually have CP while walking. Patient is on Eliquis (2.5 in morning and 2.5 at night). In the room, patient feels better. PMHx of DM, A-Fib, HLD, HTN, osteoarthritis, rheumatoid arthritis but no thyroid disease, asthma, COPD. PSHx of tubal. FHx of cardiac disease. Patient does not drink alcohol, use substances, or smoke tobacco. - History of Current Complaint Chief Complaint: EDChestPainROMI Time Seen by Provider: 07/28/18 10:39 Hx Obtained From: Patient Onset/Duration: Started Hours Ago - 0900 this morning Initial Severity: Mild Current Severity: None Pain Intensity: 0 Pain Scale Used: 0-10 Numeric Chest Pain Radiates: Yes Chest Pain Radiates To:: Arm - Left Character: Tightness Aggravating Factor(s): Nothing Alleviating Factor(s): Nothing Associated Signs and Symptoms: Positive: Chest Pain, Numbness - Left arm, Swelling - Bilateral hands, Lightheadedness - Mild. Negative: Nausea, Vomiting - Additional Pertinent History Primary Care Physician: [id number] - Allergy/Home Medications Allergies/Adverse Reactions: Allergies Allergy/AdvReac Type Severity Reaction Status Date / Time latex Allergy Unknown Verified 07/28/18 10:50 Reaction Details lisinopril Allergy Unknown Verified 07/28/18 10:50 Reaction Details Penicillins Allergy Unknown Verified 07/28/18 10:50 Reaction Details warfarin Allergy Unknown Verified 07/28/18 10:50 Reaction Details atenolol AdvReac Unknown Verified 07/28/18 10:50 Reaction Details ciprofloxacin AdvReac Unknown Verified 07/28/18 10:50 Reaction Details hydrochlorothiazide AdvReac Unknown Verified 07/28/18 10:50 Reaction Details ibuprofen AdvReac GI Upset Verified 07/28/18 10:50 irbesartan AdvReac Unknown Verified 07/28/18 10:50 Reaction Details clorox Allergy Unknown Uncoded 07/28/18 10:50 Reaction Details strawerry Allergy Unknown Uncoded 07/28/18 10:50 Reaction Details Home Medications: Home Medications Apixaban* [Eliquis*] 2.5 mg PO BID 07/28/18 [History Confirmed 07/28/18] PMH/Surg Hx/FS Hx/Imm Hx Endocrine/Hematology History: Reports: Hx Anticoagulant Therapy - eliquis, Hx Diabetes - TYPE 2 Denies: Hx Thyroid Disease Cardiovascular History: Reports: Hx Angina, Hx Atrial Fibrillation, Hx Coronary Artery Disease, Hx Hypercholesterolemia, Hx Hypertension - ON MEDS Denies: Hx Myocardial Infarction, Hx Pacemaker/ICD, Hx Valvular Heart Disease Respiratory History: Denies: Hx Asthma, Hx Chronic Obstructive Pulmonary Disease (COPD) GI History: Reports: Hx Gall Bladder Disease - removed Denies: Other GI Disorders History: Denies: Hx Renal Disease, Other Problems/Disorders Musculoskeletal History: Reports: Hx Arthritis - osteo and rheumatoid, Hx Back Problems, Hx Orthopedic Injury - R fibula fx/repair with screws and plate Sensory History: Reports: Hx Contacts or Glasses Denies: Hx Hearing Aid Opthamlomology History: Reports: Hx Contacts or Glasses Neurological History: Reports: Hx Headaches Denies: Hx Dementia, Hx Seizures, Hx Transient Ischemic Attacks (TIA) Psychiatric History: Reports: Hx Panic Disorder Denies: Hx Substance Abuse - Cancer History Hx Chemotherapy: No Hx Radiation Therapy: No - Surgical History Surgery Procedure, Year, and Place: TUBAL LIGATION;. LEFT FOREARM;. HERNIA REPAIR;. RIGHT ANKLE;. GALLBLADDER REMOVED;. LEFT EAR FOR REATTACHMENT AFTER INJURY; Hx Anesthesia Reactions: No - Immunization History Date of Tetanus Vaccine: up to date Date of Influenza Vaccine: 2014 Infectious Disease History: No Infectious Disease History: Denies: Hx Hepatitis, Hx Human Immunodeficiency Virus (HIV), Traveled Outside the [place] in Last 30 Days - Family History Known Family History: Positive: Cardiac Disease - Social History Alcohol Use: None Hx Substance Use: No Substance Use Type: Reports: None Hx Tobacco Use: No Smoking Status (MU): Never Smoked Tobacco Review of Systems Positive: Chest Pain - Tightness Negative: Vomiting, Nausea Musculoskeletal: Other - Pain spreading up left arm, swelling of both hands Neurological: Other - Mild lightheadedness Positive: Numbness - Left arm All Other Systems Reviewed And Are Negative: Yes Physical Exam - Summary Physical Exam Summary: Appearance: Well appearing, no pain distress Skin: warm, dry, reflects adequate perfusion Head/face: normal Eyes: EOMI, DESIREE ENT: normal Neck: supple, non-tender Respiratory: CTA, breath sounds present Cardiovascular: RRR, pulses symmetrical Abdomen: non-tender, soft Musculoskeletal: normal, strength/ROM intact Neuro: normal, sensory motor intact, A&Ox3 Triage Information Reviewed: Yes Vital Signs On Initial Exam: Initial Vitals Temp Pulse Resp BP Pulse Ox 98.3 F 82 13 144/90 98 07/28/18 10:49 07/28/18 10:49 07/28/18 10:49 07/28/18 10:49 07/28/18 10:49 Vital Signs Reviewed: Yes Diagnostics - Vital Signs Vital Signs Temp Pulse Resp BP Pulse Ox 07/28/18 10:49 98.3 F 82 13 144/90 98 - Laboratory Result Diagrams: 07/28/18 11:39 07/28/18 11:39 Lab Statement: Any lab studies that have been ordered have been reviewed, and results considered in the medical decision making process. - Radiology CXR Radiology Interpretation Completed By: Radiologist Summary of Radiographic Findings: No evidence for acute intrathoracic disease. Dr. Dempsey has reviewed this radiology report. - EKG 1057 Cardiac Rate: NL - 80 BPM EKG Rhythm: Atrial Fibrillation Summary of EKG Findings: Atrial fibrillation at 80 BPM, no acute changes. Re-Evaluation - Re-Evaluation First Eval Re-Evaluation Time: 15:13 Comment: Discussed results with patient. Patient does not want to be admitted for observation, so she will be discharged home with dx of atypical chest pain and history of a-fib. Patient was instructed to follow-up with cardiology as an outpatient. Patient understands and agrees with this plan. Chest Pain Course/Dx - Course Course Of Treatment: This patient is a 67 year old F brought to ED via EMS with a chief complaint of chest pain since 0900 this morning. EKG reveals atrial fibrillation at 80 BPM, no acute changes. Bloodwork obtained. CXR revealed no evidence for acute intrathoracic disease. I discussed results with patient, and she reports feeling better. Patient does not want to be admitted to the hospital for observation. She is hemodynamically stable and safe for discharge. Strict return precautions given and she will otherwise follow up with her PCP and cardiology. - Chest Pain Differential Diagnosis/HQI/PQRI: Acute VT, ACS, CHF, Lower Respiratory Infection - Diagnoses Provider Diagnoses: Atypical chest pain, History of atrial fibrillation Discharge - Sign-Out/Discharge Documenting (check all that apply): Patient Departure - Discharge Patient Received Moderate/Deep Sedation with Procedure: No - Discharge Plan Condition: Stable Disposition: HOME Patient Education Materials: A-fib (Atrial Fibrillation) (ED), Chest Pain (ED) Referrals: Derrick Meza MD [Primary Care Provider] - 3 Days Sparkle Wilkes MD [Medical Doctor] - 3 Days Additional Instructions: Follow-up with your primary care physician and Dr. Wilkes, criminal justice professor, in 3 days. RETURN TO THE ER FOR WORSENING OR CHANGING SYMPTOMS. - Billing Disposition and Condition Condition: STABLE Disposition: Home - Attestation Statements Document Initiated by Clarisseibe: Yes Documenting Scribe: Wenceslao Garza Provider For Whom Clarisseibe is Documenting (Include Credential): Berto Dempsey MD Scribe Attestation: I, Wenceslao Garza, scribed for Berto Dempsey MD on 07/28/18 at 2054. Scribe Documentation Reviewed: Yes Provider Attestation: The documentation as recorded by the mileeWenceslao accurately reflects the service I personally performed and the decisions made by me, Berto Dempsey MD Status of Scribe Document: Viewed
[2018-07-28 11:52] LABS: ABS Eosinophils 0.1 10^3/ul (0-0.6); ABS Lymphocytes 2.2 10^3/ul (1.0-4.8); ABS Monocytes 0.4 10^3/ul (0-0.8); Eosinophil % 2.6 %; Hematocrit 40 % (35-47); Hemoglobin 13.1 g/dL (12.0-16.0); Lymphocyte % 38.1 %; Mean Corpuscular HGB Conc 33 g/dL (31-36); Mean Corpuscular Hemoglobin 30 pg (27-31); Mean Corpuscular Volume 89 fL (80-97); Mean Platelet Volume 10.3 fL (7.4-10.4); Nucleated Red Blood Cells % 0.1; Platelet Count 160 10^3/uL (150-450); Red Blood Count 4.46 10^6 /uL (3.70-4.87); Red Cell Distribution Width 14 % (10.5-15); White Blood Count 5.8 10^3/uL (3.5-10.8)
[2018-07-28 11:59] LABS: Activated Partial Thrombo Time 33.6 seconds (26.0-36.3); INR 1.11 (0.82-1.09)
[2018-07-28 12:12] LABS: Albumin 3.8 g/dL (3.2-5.2); Albumin/Globulin Ratio 1.4 (1-3); BUN/Creatinine Ratio 18.2 (8-20); EGFR African American 108.8 (>60); EGFR Non-African American 89.9 (>60); Globulin 2.8 g/dL (2-4); Potassium 3.8 mmol/L (3.5-5.0); Total Bilirubin 0.6 mg/dL (0.2-1.0); Total Protein 6.6 g/dL (6.4-8.9)
[2018-07-28 15:43] VITALS: BP 140/92
== END 2018-07-28 15:42 | disposition home or self-care (01) ==
LOC: ED 10:30
DX: R07.89 Other chest pain (principal); R20.0 Anesthesia of skin; R42 Dizziness and giddiness; M79.89 Other specified soft tissue disorders; I48.91 Unspecified atrial fibrillation; Z79.01 Long term (current) use of anticoagulants; E11.9 Type 2 diabetes mellitus without complications; Z88.6 Allergy status to analgesic agent; I25.10 Atherosclerotic heart disease of native coronary artery without angina pectoris; I10 Essential (primary) hypertension; M06.9 Rheumatoid arthritis, unspecified; Z90.49 Acquired absence of other specified parts of digestive tract; Z82.49 Family history of ischemic heart disease and other diseases of the circulatory system; Z88.1 Allergy status to other antibiotic agents; Z91.040 Latex allergy status; Z88.0 Allergy status to penicillin; Z88.8 Allergy status to other drugs, medicaments and biological substances; Z91.018 Allergy to other foods; Z91.048 Other nonmedicinal substance allergy status
CPT/HCPCS: 36415; 71045; 80053; 83605; 83880; 84484; 85025; 85610; 85730; 93005; 99284

== ENCOUNTER 2018-08-30 22:50 | Emergency (ER) | payer MEDICARE, MEDICAID ==
--- NOTE | 2018-08-30 23:26 | ED ---
Substance Abuse/Use - HPI Summary HPI Summary: This pt is a 67 y/o female presenting to [facility] via EMS for alcohol intoxication today. EMS reports the pt was found by her neighbor drunk on the floor. Neighbor called 911 and pt was brought to the ED. Pt reports she drank alcohol tonight and was trying to walk when she fell. She denies drinking alcohol daily and states the last time she drank any alcohol was 8-9 years ago. Pt denies any pain. Denies any mental health hx. - History Of Current Complaint Chief Complaint: EDSubstanceAbuse Stated Complaint: ETOH PER EMS Hx Obtained From: Patient, EMS Onset/Duration of Drug/ETOH Abuse: Hours Ingestion History: Type/Name Of Drug - alcohol Overdose Characteristics: Oral Timing Of Abuse: Binge Use Severity Currently: Moderate Aggravating Factor(s): Nothing Alleviating Factor(s): Nothing Associated Signs And Symptoms: Intentional Ingestion, Other: - patient denies any pain - Allergies/Home Medications Allergies/Adverse Reactions: Allergies Allergy/AdvReac Type Severity Reaction Status Date / Time latex Allergy Unknown Verified 07/28/18 10:50 Reaction Details lisinopril Allergy Unknown Verified 07/28/18 10:50 Reaction Details Penicillins Allergy Unknown Verified 07/28/18 10:50 Reaction Details warfarin Allergy Unknown Verified 07/28/18 10:50 Reaction Details atenolol AdvReac Unknown Verified 07/28/18 10:50 Reaction Details ciprofloxacin AdvReac Unknown Verified 07/28/18 10:50 Reaction Details hydrochlorothiazide AdvReac Unknown Verified 07/28/18 10:50 Reaction Details ibuprofen AdvReac GI Upset Verified 07/28/18 10:50 irbesartan AdvReac Unknown Verified 07/28/18 10:50 Reaction Details clorox Allergy Unknown Uncoded 07/28/18 10:50 Reaction Details strawerry Allergy Unknown Uncoded 07/28/18 10:50 Reaction Details PMH/Surg Hx/FS Hx/Imm Hx Endocrine/Hematology History: Reports: Hx Anticoagulant Therapy - eliquis, Hx Diabetes - TYPE 2 Denies: Hx Thyroid Disease Cardiovascular History: Reports: Hx Angina, Hx Atrial Fibrillation, Hx Coronary Artery Disease, Hx Hypercholesterolemia, Hx Hypertension - ON MEDS Denies: Hx Myocardial Infarction, Hx Pacemaker/ICD, Hx Valvular Heart Disease Respiratory History: Denies: Hx Asthma, Hx Chronic Obstructive Pulmonary Disease (COPD) GI History: Reports: Hx Gall Bladder Disease - removed Denies: Other GI Disorders History: Denies: Hx Renal Disease, Other Problems/Disorders Musculoskeletal History: Reports: Hx Arthritis - osteo and rheumatoid, Hx Back Problems, Hx Orthopedic Injury - R fibula fx/repair with screws and plate Sensory History: Reports: Hx Contacts or Glasses Denies: Hx Hearing Aid Opthamlomology History: Reports: Hx Contacts or Glasses Neurological History: Reports: Hx Headaches Denies: Hx Dementia, Hx Seizures, Hx Transient Ischemic Attacks (TIA) Psychiatric History: Reports: Hx Panic Disorder Denies: Hx Substance Abuse - Cancer History Hx Chemotherapy: No Hx Radiation Therapy: No - Surgical History Surgery Procedure, Year, and Place: TUBAL LIGATION;. LEFT FOREARM;. HERNIA REPAIR;. RIGHT ANKLE;. GALLBLADDER REMOVED;. LEFT EAR FOR REATTACHMENT AFTER INJURY; Hx Anesthesia Reactions: No - Immunization History Date of Tetanus Vaccine: up to date Date of Influenza Vaccine: 2014 Infectious Disease History: No Infectious Disease History: Denies: Hx Hepatitis, Hx Human Immunodeficiency Virus (HIV), Traveled Outside the [place] in Last 30 Days - Family History Known Family History: Positive: Cardiac Disease - Social History Alcohol Use: None Hx Substance Use: No Substance Use Type: Reports: None Hx Tobacco Use: No Smoking Status (MU): Never Smoked Tobacco Review of Systems Negative: Fever Cardiovascular: Negative Respiratory: Negative Gastrointestinal: Negative Neurological: Other - POSITIVE: alcohol intoxication All Other Systems Reviewed And Are Negative: Yes Physical Exam - Summary Physical Exam Summary: VITAL SIGNS: Reviewed. GENERAL: Patient is a well-developed and nourished female who is lying comfortable in the stretcher. Patient is not in any acute respiratory distress. HEAD AND FACE: No signs of trauma. No ecchymosis, hematomas or skull depressions. No sinus tenderness. EYES: PERRLA, EOMI x 2, No injected conjunctiva, no nystagmus. EARS: Hearing grossly intact. Ear canals and tympanic membranes are within normal limits. MOUTH: Oropharynx within normal limits. NECK: Supple, trachea is midline, no adenopathy, no JVD, no carotid bruit, no c- spine tenderness, neck with full ROM. CHEST: Symmetric, no tenderness at palpation LUNGS: Clear to auscultation bilaterally. No wheezing or crackles. CVS: Regular rate and rhythm, S1 and S2 present, no murmurs or gallops appreciated. ABDOMEN: Soft, non-tender. No signs of distention. No rebound no guarding, and no masses palpated. Bowel sounds are normal. EXTREMITIES: FROM in all major joints, no edema, no cyanosis or clubbing. NEURO: Alert and oriented x 3. No acute neurological deficits. Speech is normal and follows commands. SKIN: Dry and warm Triage Information Reviewed: Yes Vital Signs On Initial Exam: Initial Vitals Temp Pulse Resp BP Pulse Ox 97.9 F 82 20 130/76 95 08/30/18 23:06 08/30/18 23:06 08/30/18 23:06 08/30/18 23:06 08/30/18 23:06 Vital Signs Reviewed: Yes Diagnostics - Vital Signs Vital Signs Temp Pulse Resp BP Pulse Ox 08/30/18 23:06 97.9 F 82 20 130/76 95 - Laboratory Lab Statement: Any lab studies that have been ordered have been reviewed, and results considered in the medical decision making process. Re-Evaluation - Re-Evaluation First Eval Re-Evaluation Time: 01:52 Comment: Pt was ambulated in the ED without any difficulties. She has a normal steady gait. Course/Dx - Course Assessment/Plan: Pt is a 67 y/o female presenting to [facility] via EMS for alcohol intoxication today. EMS reports the pt was found by her neighbor drunk on the floor. Neighbor called 911 and pt was brought to the ED. Pt reports she drank alcohol tonight and was trying to walk when she fell. She was observed in the ED. On re-evaluation pt was ambulated without any difficulties. She had a normal steady gait. Pt will be discharged home with follow up from her PCP. She was given instructions to return to the ED for any worsening or new symptoms. - Diagnoses Provider Diagnoses: Alcohol intoxication Discharge - Sign-Out/Discharge Documenting (check all that apply): Patient Departure - Discharge home Patient Received Moderate/Deep Sedation with Procedure: No - Discharge Plan Condition: Stable Disposition: HOME Patient Education Materials: Alcohol Intoxication (ED) Referrals: Derrick Meza MD [Primary Care Provider] - Additional Instructions: Please follow up with your primary care provider in 1-2 days. RETURN TO EMERGENCY DEPARTMENT FOR ANY NEW OR WORSENING SYMPTOMS. - Attestation Statements Document Initiated by Scribe: Yes Documenting Scribe: Citlalli Panda Provider For Whom Scribe is Documenting (Include Credential): Christiano Lam MD Scribe Attestation: Citlalli Devlin, scribed for Christiano Lam MD on 08/31/18 at 0418. Status of Scribe Document: Ready
[2018-08-31 02:25] VITALS: BP 116/83
== END 2018-08-31 02:24 | disposition home or self-care (01) ==
LOC: ED 22:50
DX: F10.929 Alcohol use, unspecified with intoxication, unspecified (principal); E11.9 Type 2 diabetes mellitus without complications; I48.91 Unspecified atrial fibrillation; I25.10 Atherosclerotic heart disease of native coronary artery without angina pectoris; I10 Essential (primary) hypertension; Z79.01 Long term (current) use of anticoagulants
CPT/HCPCS: 99282

== ENCOUNTER 2019-03-12 08:47 | Emergency (ER) | payer MEDICARE, MEDICAID ==
--- NOTE | 2019-03-12 09:02 | ED ---
Head Injury - HPI Summary HPI Summary: 68-year-old female with a significant medical history of type 2 diabetes, hyperlipidemia, HTN, CAD, atrial fibrillation on eliquis presents to emergency Department today status post mechanical fall and hitting the posterior aspect of her head on the ground. Patient denies loss of consciousness, changes in vision, vomiting, history of brain bleed or polycystic kidney disease. Patient endorses a mild headache and neck pain and right hip pain. Patient has full range of motion in her neck but states she was unable to ambulate after the fall due to her head pain. Patient currently has no neurological deficits and has normal speech. Patient was alert and oriented 3. She otherwise feels well and denies fever, chest pain, abdominal pain, pain with urination, rash. Family history and surgical history none reported. - History Of Current Complaint Chief Complaint: EDFall Stated Complaint: FALL-RIGHT HIP PAIN PER EMS Time Seen by Provider: 03/12/19 09:00 Hx Obtained From: Patient Mechanism Of Injury: Fall From A Standing Position Onset/Duration: Started Hours Ago Onset of Pain: Immediate Severity Currently: Severe Severity Initially: Severe Pain Intensity: 8 Pain Scale Used: 0-10 Numeric Location of Head Injury: Occipital Associated Signs And Symptoms: Neck Pain, Nausea, Headache Anticoagulant Therapy: Blood Thinners - eliquis - Allergies/Home Medications Allergies/Adverse Reactions: Allergies Allergy/AdvReac Type Severity Reaction Status Date / Time latex Allergy Unknown Verified 07/28/18 10:50 Reaction Details lisinopril Allergy Unknown Verified 07/28/18 10:50 Reaction Details Penicillins Allergy Unknown Verified 07/28/18 10:50 Reaction Details warfarin Allergy Unknown Verified 07/28/18 10:50 Reaction Details atenolol AdvReac Unknown Verified 07/28/18 10:50 Reaction Details ciprofloxacin AdvReac Unknown Verified 07/28/18 10:50 Reaction Details hydrochlorothiazide AdvReac Unknown Verified 07/28/18 10:50 Reaction Details ibuprofen AdvReac GI Upset Verified 07/28/18 10:50 irbesartan AdvReac Unknown Verified 07/28/18 10:50 Reaction Details clorox Allergy Unknown Uncoded 07/28/18 10:50 Reaction Details strawerry Allergy Unknown Uncoded 07/28/18 10:50 Reaction Details PMH/Surg Hx/FS Hx/Imm Hx Endocrine/Hematology History: Reports: Hx Anticoagulant Therapy - eliquis, Hx Diabetes - TYPE 2 Denies: Hx Thyroid Disease Cardiovascular History: Reports: Hx Angina, Hx Atrial Fibrillation, Hx Coronary Artery Disease, Hx Hypercholesterolemia, Hx Hypertension - ON MEDS Denies: Hx Myocardial Infarction, Hx Pacemaker/ICD, Hx Valvular Heart Disease Respiratory History: Denies: Hx Asthma, Hx Chronic Obstructive Pulmonary Disease (COPD) GI History: Reports: Hx Gall Bladder Disease - removed Denies: Other GI Disorders History: Denies: Hx Renal Disease, Other Problems/Disorders Musculoskeletal History: Reports: Hx Arthritis - osteo and rheumatoid, Hx Back Problems, Hx Orthopedic Injury - R fibula fx/repair with screws and plate Sensory History: Reports: Hx Contacts or Glasses Denies: Hx Hearing Aid Opthamlomology History: Reports: Hx Contacts or Glasses Neurological History: Reports: Hx Headaches Denies: Hx Dementia, Hx Seizures, Hx Transient Ischemic Attacks (TIA) Psychiatric History: Reports: Hx Panic Disorder Denies: Hx Substance Abuse - Cancer History Hx Chemotherapy: No Hx Radiation Therapy: No - Surgical History Surgery Procedure, Year, and Place: TUBAL LIGATION;. LEFT FOREARM;. HERNIA REPAIR;. RIGHT ANKLE;. GALLBLADDER REMOVED;. LEFT EAR FOR REATTACHMENT AFTER INJURY; Hx Anesthesia Reactions: No - Immunization History Date of Tetanus Vaccine: up to date Date of Influenza Vaccine: 2014 Infectious Disease History: No Infectious Disease History: Denies: Hx Hepatitis, Hx Human Immunodeficiency Virus (HIV), Traveled Outside the [place] in Last 30 Days - Family History Known Family History: Positive: Cardiac Disease - Social History Alcohol Use: None Hx Substance Use: No Substance Use Type: Reports: None Hx Tobacco Use: No Smoking Status (MU): Never Smoked Tobacco Review of Systems Constitutional: Negative Eyes: Negative ENT: Negative Cardiovascular: Negative Respiratory: Negative Gastrointestinal: Negative Genitourinary: Negative Positive: Arthralgia Skin: Negative Negative: Rash, Bruising Positive: Headache Psychological: Normal All Other Systems Reviewed And Are Negative: Yes Physical Exam - Summary Physical Exam Summary: Patient is in no acute distress and has no obvious deformity. There is no edema or ecchymosis or signs of dislocation of the right hip. Patient states she is unable and related this time. Patient's full range motion of her neck although it is painful. PERRLA EOMI. No neurological deficits. Alert and oriented 3. No respiratory distress. No midline tenderness cervical spine. Triage Information Reviewed: Yes Vital Signs On Initial Exam: Initial Vitals Temp Pulse Resp BP Pulse Ox 98.6 F 106 18 151/92 98 03/12/19 08:57 03/12/19 08:57 03/12/19 08:57 03/12/19 08:57 03/12/19 08:57 Vital Signs Reviewed: Yes Appearance: Positive: Well-Appearing, No Pain Distress, Well-Nourished Skin: Positive: Warm, Skin Color Reflects Adequate Perfusion Eyes: Positive: EOMI, DESIREE ENT: Positive: Hearing grossly normal Respiratory/Lung Sounds: Positive: Clear to Auscultation, Breath Sounds Present Cardiovascular: Positive: RRR, S1, S2 Abdomen Description: Positive: Nontender, Soft Bowel Sounds: Positive: Present Musculoskeletal: Positive: Strength/ROM Intact Neurological: Positive: Sensory/Motor Intact, Alert, Oriented to Person Place, Time, Facial Symmetry, Speech Normal Psychiatric: Positive: Normal, Affect/Mood Appropriate AVPU Assessment: Alert Procedures - Sedation Patient Received Moderate/Deep Sedation with Procedure: No Diagnostics - Vital Signs Vital Signs Temp Pulse Resp BP Pulse Ox 03/12/19 08:57 98.6 F 106 18 151/92 98 - Laboratory Lab Statement: Any lab studies that have been ordered have been reviewed, and results considered in the medical decision making process. Head Injury Course/Dx Course Of Treatment: Patient was evaluated in the emergency Department today status post fall. Patient seen and examined her vitals were stable and she is afebrile with no neurological changes. CT of the head and cervical spine are ordered without contrast to investigate possible brain bleed as she was a high- risk considering anticoagulation. xray of the pelvis and right hip show no evidence of fracture, pts symptoms are likely due to contusion. CT scan of the cervical spine and brain without contrast shows no evidence of intracranial bleed or fracture. Patient sustained no significant trauma from her fall and was discharged home with expected and told to follow-up with her primary care provider in 5 days for further evaluation and management. - Diagnoses Differential Diagnosis/HQI/PQRI: Cerebral Contusion, Cervical Sprain, Concussion Without LOC, Contusion, Intracranial Bleed, Skull Fracture Provider Diagnoses: Fall, Right hip pain Discharge ED - Sign-Out/Discharge Documenting (check all that apply): Patient Departure - Discharge Plan Condition: Stable Disposition: HOME Patient Education Materials: Fall Prevention (ED), Hip Pain (ED) Referrals: Derrick Meza MD [Primary Care Provider] - 5 Days Additional Instructions: You were seen in the emergency department today due to a fall. There is concern that you may have sustained a brain bleed due to being on anticoagulation however CT scans were done and showed no evidence of brain bleed or fracture of your head or neck. Your pain is likely due to a bruise. You may take Tylenol 650 mg every 6 hours as needed for pain and follow-up with your primary care provider in 7 days for further evaluation and management. Please return to the emergency department immediately if you develop any new or worsening symptoms. - Billing Disposition and Condition Condition: STABLE Disposition: Home
--- OUTSIDE RECORDS SUMMARY | 2019-03-12 09:54 | XMS REPORT | Continuity of Care Document ---
:1950 External Reference #:[id number] Author Name Elidia Cheema M.D. 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 [phone] Medicine Problems Active Problems Provider Date Atrial fibrillation Boone Evans M.D., [facility], Onset: 12/23/2012 FASID Chronic ischemic heart disease Boone Evans M.D., [facility], Onset: 2013 FASID Persistent atrial fibrillation Boone Evans M.D., [facility], Onset: 2014 FASNC Chest pain Boone Evans M.D., [facility], Onset: 12/21/2015 FASID Postconcussion syndrome Saadia Torres MD Onset: 06/30/2016 Neck pain Saadia Torres MD Onset: 06/30/2016 Dizziness and giddiness Saadia Torres MD Onset: 09/29/2016 Other speech disturbances Saadia Torres MD Onset: 09/29/2016 Abnormal results function studies of Saadia Torres MD Onset: 11/20/2016 central nervous system Migraine without aura, not refractory Saadia Torres MD Onset: 04/09/2017 Localized, primary osteoarthritis of Bhaskar Tobias MD Onset: 04/10/2017 the ankle and/or foot Essential hypertension Ame Wallace DO Onset: 01/30/2018 Type 2 diabetes mellitus DANAY Cloud Onset: 01/31/2018 Gastroesophageal reflux disease DANAY Cloud Onset: 01/31/2018 Social History Type Date Description Comments Sex Unknown Tobacco Use Start: Unknown Never Smoked Cigarettes ETOH Use Rarely consumes alcohol Tobacco Use Start: Unknown Patient is a former Per patient, has not End: Unknown smoker used marijuana or cigarettes since s. Recreational Drug Use Former Drug User Used marijuana 40 years ago Smoking Status Reviewed: 01/28/19 Patient is a former Per patient, has not smoker used marijuana or cigarettes since . Exercise Type/Frequency Walks approx 3 miles 3-4 times per week. Allergies, Adverse Reactions, Alerts Active Allergies Reaction Severity Comments Date Penicillin 01/05/2010 Ibuprofen 01/05/2010 Strawberries 12/19/2012 Lisinopril 12/19/2012 Avalide 12/19/2012 Atenolol 09/30/2013 Latex 11/26/2013 Bleach 06/30/2016 Medications Active Medications SIG Qnty Indications Ordering Provider Date Eliquis 1 tab by mouth 180tabs I48.91 Qutaybrosalind S. 07/24/2018 2.5mg Tablets every 12 hours Ramy Cheema for 30 days Diltiazem HCL ER 1 by mouth every 90caps Qutafadi S. 12/31/2017 240mg day Ramy Cheema Caps ER 24HR Losartan Potassium take one tablet 90tabs Qutaybrosalind S. 12/04/2014 25mg once a day Ramy Cheema Tablets Nexium 1 po every other 90caps Unknown 40mg Capsules DR day Glipizide XL 1 po qd 90tabs Unknown 5mg Tablets ER 24HR Nitrostat one sl q5min up 25tabs Unknown 0.4mg Tablets to 3 doses prn Sub Aspirin 1 po qd Unknown 81mg Tablets DR Ribera 1 tablet po qd Derrick Meza, 50mg Tablets Nasonex 1 spray each Timothy Bender, 50mcg/Act nostril twice MD Suspension daily Am/PM Crestor qd Derrick Meza, 5mg Tablets Magnesium Oxide 1 by mouth once 100caps Qutaybeh S. 400mg a angela Cheema M.D. Capsules Metformin HCL 1 by mouth twice Unknown 500mg a day Tablets Medications Administered in Office Medication SIG Qnty Indications Ordering Provider Date Technetium TC 99M Boone Richar Evans M.D., 12/20/2015 Tetrofosmin, Per Unit Dose Up FACC, FASNC To 40 Millicuries Injection Inj, Regadenoson, 0.1 MG Boone Evans M.D., 10/27/2013 Injection FACC, FASNC Inj, Regadenoson, 0.1 MG Sparkle Wilkes M.D. 10/27/2013 Injection Aminophylline Boone Evans M.D., 10/27/2013 Injection JANELLC, FASNC Aminophylline Sparkle Wilkes M.D. 10/27/2013 Injection Technetium TC 99M Boone Evans M.D., 10/27/2013 Tetrofosmin, Per Unit Dose Up JANELLC, FASNC To 40 Millicuries Injection Technetium TC 99M Sparkle Wilkes M.D. 10/27/2013 Tetrofosmin, Per Unit Dose Up To 40 Millicuries Injection Immunizations Description No Information Available Vital Signs Date Vital Result Comment 01/28/2019 11:02am Height 67 inches 5'7" Weight 254.00 lb with shoes Heart Rate 76 /min radial,irregular BP Systolic Sitting 124 mmHg LA, lg cuff BP Diastolic Sitting 80 mmHg LA, lg cuff BMI (Body Mass Index) 39.8 kg/m2 Ejection Fraction 55%-60% echocardiogram 04/09/18 07/10/2018 11:04am Height 67 inches 5'7" Weight 253.12 lb Clothes/shoes Heart Rate 84 /min Apical BP Systolic Sitting 146 mmHg Lue Lg Cuff BP Diastolic Sitting 82 mmHg Lue Lg Cuff BP Systolic Lying Down 130 mmHg Rue Lg cuff after waiting BP Diastolic Lying Down 78 mmHg Rue Lg cuff after waiting BMI (Body Mass Index) 39.6 kg/m2 Ejection Fraction 55-60% Echo 04/09/2018 Results Description No Information Available Procedures Date Code Description Status 01/28/2019 18086 EKG Tracing & Interpretation Completed Medical Devices Description No Information Available Encounters Description No Information Available Assessments Date Code Description Provider 01/28/2019 I48.21 Permanent atrial fibrillation Elidia Cheema M.D. 01/28/2019 I10 Essential (primary) hypertension Elidia Cheema M.D. 01/28/2019 I25.10 Atherosclerotic heart disease of Elidia Cheema M.D. [place] coronary artery with 01/28/2019 I77.819 Aortic ectasia, unspecified site Elidia Cheema M.D. 01/28/2019 E66.9 Obesity, unspecified Elidia Cheema M.D. 01/28/2019 I34.0 Nonrheumatic mitral (valve) Elidia Cheema M.D. insufficiency Plan of Treatment 01/28/2019 - Elidia Cheema M.D.I48.21 Permanent atrial fibrillationFollow up:10 months ovI10 Essential (primary) [id number] Atherosclerotic heart disease of [place] coronary artery withI77.819 Aortic ectasia, unspecified siteNew Orders:Echocardiogram, Ordered: 01/28/19E66.9 Obesity, nkllptnsomrE21.0 Nonrheumatic mitral (valve) insufficiency Functional Status Description No Information Available Mental Status Description No Information Available Referrals Description No Information Available
[2019-03-12 12:53] VITALS: BP 135/92
== END 2019-03-12 13:14 | disposition home or self-care (01) ==
LOC: ED 08:47
DX: M25.551 Pain in right hip (principal); W19.XXXA Unspecified fall, initial encounter; Y92.9 Unspecified place or not applicable; M50.30 Other cervical disc degeneration, unspecified cervical region; E11.9 Type 2 diabetes mellitus without complications; E78.5 Hyperlipidemia, unspecified; I10 Essential (primary) hypertension; I25.10 Atherosclerotic heart disease of native coronary artery without angina pectoris; I48.91 Unspecified atrial fibrillation; Z98.51 Tubal ligation status; Z90.49 Acquired absence of other specified parts of digestive tract; Z79.01 Long term (current) use of anticoagulants; Z79.899 Other long term (current) drug therapy; Z91.040 Latex allergy status; Z88.0 Allergy status to penicillin; Z88.8 Allergy status to other drugs, medicaments and biological substances; Z88.1 Allergy status to other antibiotic agents
CPT/HCPCS: 70450; 72125; 99282